=== PATIENT | female | born 1970 | race Caucasian/White ===

== ENCOUNTER → 2017-08-14 13:36 | Outpatient (CLI) | payer BC, MEDICAID, SELFPAY ==
--- NOTE | 2017-08-14 13:42 | XR_ITS ---
EXAM: XR thoracic spine 3V HISTORY: Posttraumatic pain ITS.REASON: TRAUMA,LOW BACK PAIN FINDINGS: Normal alignment. Mild thoracic curvature convex right. Minimal degenerative changes are present in the midthoracic spine. No fracture or dislocation. No lytic or blastic change. There are 2 small metallic densities overlying the mid aspect of the heart IMPRESSION: No acute finding
--- NOTE | 2017-08-14 13:42 | XR_ITS ---
EXAM: XR lumbar spine min 4V HISTORY: ITS.REASON: TRAUMA,LOW BACK PAIN ORDERING PHYSICIAN: Chiquita Mckeon PATIENT AGE: 46 years COMPARISON: FINDINGS: Normal alignment. No fracture or dislocation. No lytic or blastic change. No significant degenerative change. The disc spaces are preserved. IMPRESSION: No acute finding
== END ==
PROVIDERS: PCP Internal Medicine Adolescent Medicine; Visit Provider Nurse Practitioner Family
DX: G89.11 Acute pain due to trauma (principal); M54.5 Low back pain
CPT/HCPCS: 72072; 72110

== ENCOUNTER 2018-01-10 07:49 | Outpatient (RCR) | payer BC, MEDICAID, SELFPAY | END 2018-01-10 07:50 | disposition home or self-care (01) | LOC: PT 07:49 | PROVIDERS: Family Provider Internal Medicine; PCP Nurse Practitioner Family; Visit Provider Orthopaedic Surgery | DX: M25.551 Pain in right hip (principal) | CPT/HCPCS: 97110; 97163 ==

== ENCOUNTER 2019-04-11 08:07 | Outpatient (RCR) | payer BC, SELFPAY | END 2019-04-11 08:10 | disposition home or self-care (01) | LOC: PT 08:07 | PROVIDERS: Visit Provider Orthopaedic Surgery | DX: M25.551 Pain in right hip (principal) | CPT/HCPCS: 97163 ==

== ENCOUNTER 2019-12-25 18:39 | Emergency (ER) | payer BC, SELFPAY ==
[2019-12-25 19:11] VITALS: BP 126/87; PULSE 70; RESP 21; TEMP 36.8; O2SAT 98; BMI 20.5
--- NOTE | 2019-12-25 19:23 | HMH.EDUTC ---
[facility] [place] Clinical Impression: UTI (urinary tract infection) Qualifiers: Urinary tract infection type: site unspecified Hematuria presence: without hematuria Qualified Code(s): N39.0 - Urinary tract infection, site not specified Disposition: Home, Self-Care Condition on Discharge: Good Instructions: Urinary Tract Infection, DI for Urinary Tract Infection (UTI), Nitrofurantoin, Fluconazole Additional Instructions: *Increase fluids. Water not Soda or Tea *Start antibiotic immediately and be sure to take as ordered for the FULL length of time although you should start to see improvement over the next 48 hours *Pyridium as needed Remember this medication will turn your urine [place]. This is normal but it will stain what ever it gets on *You should not use Pyridium for more than 48 hours. If so , follow up with your primary physician to review urine culture and ensure that antibiotic is adequate for infection *Be SURE to follow up anytime for new or worsening symptoms with your family doctor. AND in 48 hours for urine culture results with your family doctor, if you do not have a doctor then you may call back to the [facility] for urine culture results and further treatment. We do recommend that you choose and establish care with a Primary Care Physician. AND follow up with them in 10-14 days to repeat UA to ensure infection is resolved and blood no longer present *Be sure to let your PCP know that we sent urine cultures from the [facility] so they can follow up to ensure that you area the on the correct antibiotic Call your doctor office and make appointment for 48 hours (2 days from today) to follow up and get the results of your urine culture and further treatment Return if needed Straight to ER if any life threatening symptoms Prescriptions: Fluconazole [Diflucan 150mg tab] 150 mg PO ONCE #1 tab Transmission Status: Pending to [facility] # Nitrofurantoin Monohyd/M-Cryst [Macrobid 100 mg Capsule] 100 mg PO BID 10 Days #20 cap Transmission Status: Pending to [facility] # Phenazopyridine HCl [Pyridium 200mg Tablet] 200 pow PO TID #6 tab Transmission Status: Pending to [facility] # Referrals: Chanelle Kay [Primary Care Provider] - As needed Time of Disposition: 19:37 Medical Decision Making - Hakan Inquiry Pt receiving controlled substance: No Hakan was queried for this patient: No Vital Signs: 12/25/19 19:11 12/25/19 19:33 Temperature 98.2 F 98.2 F Temperature Source Oral Pulse Rate 70 Pulse Rate [Left] 70 Respiratory Rate 21 20 Blood Pressure 126/87 Blood Pressure [Right Arm] 126/87 Blood Pressure Mean [Right Arm] 100 Blood Pressure Source [Right Arm] Automatic Cuff Blood Pressure Position [Right Arm] Sitting 02 Sat by Pulse Oximetry 98 Oxygen Delivery Method Room Air - Lab Data Lab results reviewed: Yes: I reviewed the patient's lab results. Lab Results 12/25/19 19:23: Urine Color Yellow, Urine Appearance Clear, Urine pH 6.5, Ur Specific [place] 1.005, Urine Protein Negative, Urine Glucose (UA) Negative, Urine Ketones Negative, Urine Blood Negative, Urine Nitrate Negative, Urine Bilirubin Negative, Urine Urobilinogen 0.2, Ur Leukocyte Esterase Trace [facility] [place] - General Stated complaint: Possible UTI Time Seen by Provider: 12/25/19 19:23 Mode of Arrival: Ambulatory Source of Information: Patient Limitations: No Limitations Description of Symptoms (Recalled from Triage Doc. by RN): Bladdder spasm x 1 week HEENT Symptoms (Recalled from RN notes): No Resp Symptoms (Recalled from RN notes): No Skin Symptoms (Recalled from RN notes): No MS Symptoms (Recalled from RN notes): Yes Functional Status (Recalled from RN notes): WNL - History of Present Illness Provider Complaint: Patient states that she has been having burning with urination and feeling like she is having bladder spasms States that it has been on and off for a week and would come and go
[2019-12-25 19:25] LABS: Apearance,Urine Clear (Clear); Bilirubin,Urine Negative (Negative); Blood, Urine Negative (Negative); Color,Urine Yellow (Yellow); Glucose,Urine (UA) Negative (Negative); Ketones,Urine Negative (Negative); PH,Urine 6.5 (5.0-8.5); Protein,Urine Negative (Negative); Specific Gravity, Urine 1.005 (1.005-1.030); UTC Leukocyte Esterase,Urine Trace (Negative); UTC Nitrate,Urine Negative (Negative); Urobilinogen,Urine 0.2 EU/dl (0.2)
[2019-12-25 19:33] VITALS: BP 126/87; PULSE 70; RESP 20; TEMP 36.8; O2SAT 98
== END 2019-12-25 19:53 | disposition home or self-care (01) ==
PROVIDERS: Emergency Provider Nurse Practitioner; PCP Nurse Practitioner Family
DX: N30.00 Acute cystitis without hematuria (principal); N32.89 Other specified disorders of bladder; Z87.442 Personal history of urinary calculi; G43.709 Chronic migraine without aura, not intractable, without status migrainosus; Z88.1 Allergy status to other antibiotic agents; Z79.899 Other long term (current) drug therapy
CPT/HCPCS: 81003; 87086; 87880; 99201

== ENCOUNTER 2020-03-07 13:06 | Emergency (ER) | payer BC, SELFPAY ==
[2020-03-07 13:45] VITALS: BP 125/84; PULSE 73; RESP 20; TEMP 37; O2SAT 100
--- NOTE | 2020-03-07 14:22 | HMH.EDUTC ---
[facility] [place]ression: Exposure to COVID-19 virus Migraine Qualifiers: Migraine type: other Status migrainosus presence: without status migrainosus Intractability: not intractable Qualified Code(s): G43.809 - Other migraine, not intractable, without status migrainosus Disposition: Home, Self-Care Condition on Discharge: Good Instructions: Preventing the Spread of Coronavirus Discharge Instructions, Migraine -- Adult, DI for Migraine Prescriptions: Ondansetron [Zofran 4mg ODT] 4 mg PO TIDP PRN 3 Days #7 tab PRN Reason: Nausea Prescription Printed Referrals: Chanelle Kay [Primary Care Provider] - Time of Disposition: 14:40 Medical Decision Making - Hakan Inquiry Pt receiving controlled substance: No Vital Signs: 03/07/20 13:45 Temperature 98.6 F Temperature Source Oral Pulse Rate [Left Brachial] 73 Respiratory Rate 20 Blood Pressure [Left Arm] 125/84 Blood Pressure Mean [Left Arm] 97 Blood Pressure Source [Left Arm] Automatic Cuff Blood Pressure Position [Left Arm] Sitting 02 Sat by Pulse Oximetry 100 Oxygen Delivery Method Room Air [facility] [place] - General Chief complaint: [facility] Stated complaint: migraine, fever, ear pain Time Seen by Provider: 03/07/20 14:23 Mode of Arrival: Ambulatory Source of Information: Patient Limitations: No Limitations Description of Symptoms (Recalled from Triage Doc. by RN): PATIENT C/O FEVER, NAUSEA, VOMITING, HEADACHE, BILATERAL EAR PAIN, SINUS PRESSURE/DRAINAGE, AND SORE THROAT SINCE YESTERDAY. EXPOSED TO COVID THROUGH WORK HEENT Symptoms (Recalled from RN notes): Yes Resp Symptoms (Recalled from RN notes): No Skin Symptoms (Recalled from RN notes): No MS Symptoms (Recalled from RN notes): No Functional Status (Recalled from RN notes): WNL - History of Present Illness Provider Complaint: 49 yr old female presents for sore throat, migraine headache, fever, clear nasal congestion, left ear pain, nausea and body aches. pt states she has a history of migraines and this is like her normal headache but is out of meds. was exposed to covid at work - Related Data Home Medications Medication Instructions Recorded Confirmed bupropion HCl 150 mg 24 hr tablet, 150 mg PO QAM 06/18/17 04/29/18 extended release fluoxetine 10 mg capsule 10 mg PO ONCE cap 06/18/17 04/29/18 lidocaine 5 % topical patch 1 patch TOPICAL ONCE 06/18/17 04/29/18 tizanidine 2 mg capsule 2 mg PO TID PRN cap 06/18/17 04/29/18 topiramate 200 mg tablet 200 mg PO ONCE tab 06/18/17 04/29/18 furosemide 20 mg tablet 20 mg PO NEEDED PRN 90 Days #90 11/28/17 04/29/18 hydrocodone 5 mg-acetaminophen 325 PO 30 Days #30 tab 03/06/18 04/29/18 mg tablet ibuprofen 800 mg-famotidine 26.6 PO 30 Days #90 tab 03/06/18 04/29/18 mg tablet Previous Rx's Medication Instructions Recorded albuterol sulfate 90 mcg/actuation 2 puff INHALATION Q6H PRN 7 Days 03/06/18 aerosol inhaler #6.7 g albuterol sulfate 90 mcg/actuation 2 puff INHALATION Q6H PRN 7 Days 04/29/18 aerosol inhaler #6.7 g benzonatate 200 mg capsule 200 mg PO TID PRN 7 Days #21 cap 04/29/18 prednisone 20 mg tablet 20 mg PO BID 7 Days #14 tab 04/29/18 Fluconazole [Diflucan 150mg tab] 150 mg PO ONCE #1 tab 12/25/19 Nitrofurantoin Monohyd/M-Cryst 100 mg PO BID 10 Days #20 cap 12/25/19 [Macrobid 100 mg Capsule] Phenazopyridine HCl [Pyridium 200 pow PO TID #6 tab 12/25/19 200mg Tablet] Ondansetron [Zofran 4mg ODT] 4 mg PO TIDP PRN 3 Days #7 tab 03/07/20 Allergies Allergy/AdvReac Type Severity Reaction Status Date / Time amoxicillin [From Augmentin] Allergy Verified 04/29/18 12:20 clavulanic acid Allergy Verified 04/29/18 12:20 [From Augmentin] doxycycline Allergy Verified 03/07/20 14:02 NSAIDS (Non-Steroidal Allergy Verified 03/07/20 14:02 Anti-Inflamma zolpidem [From Ambien] Allergy Verified 04/29/18 12:20 - Worker's Comp Is this a Worker's Comp case?: No
[2020-03-07 14:24] LABS: UTC Influenza A Antigen Negative (Negative); UTC Influenza B Antigen Negative (Negative)
[2020-03-07 15:03] VITALS: BP 125/84; PULSE 73; RESP 20; TEMP 37; O2SAT 100
--- NOTE | 2020-03-08 09:44 | PC.NURSE ---
patient notified of positive covid results
== END 2020-03-07 15:11 | disposition home or self-care (01) ==
PROVIDERS: Emergency Provider Nurse Practitioner Family; PCP Nurse Practitioner Family
DX: U07.1 COVID-19 (principal); G43.809 Other migraine, not intractable, without status migrainosus; F33.1 Major depressive disorder, recurrent, moderate; Z87.442 Personal history of urinary calculi; Z79.899 Other long term (current) drug therapy; Z88.1 Allergy status to other antibiotic agents; Z88.8 Allergy status to other drugs, medicaments and biological substances
CPT/HCPCS: 87804; 96372; 99202; U0003

== ENCOUNTER 2020-03-14 13:46 | Emergency (ER) | payer BC, SELFPAY ==
[2020-03-14 13:50] VITALS: BP 116/83; PULSE 97; RESP 18; TEMP 36.9; O2SAT 97; BMI 19.9
--- NOTE | 2020-03-14 14:04 | XR_ITS ---
PROCEDURE: XR CHEST PORTABLE CLINICAL HISTORY: lung pain COMPARISON: CR CXR CHEST(2 VIEWS-NOT PORTABLE) from 01/23/2013 CR CXR CHEST(2 VIEWS-NOT PORTABLE) from 01/20/2014 CR CXR1 CHEST-PORTABLE from 02/11/2014 FINDINGS: There is hyperinflation of the lung iverson. There is no definite pneumonic infiltrate and there is no pleural fluid. The cardiac silhouette and vascularity are normal. There is a hypoplastic right 1st rib otherwise the bony thorax appears normal. IMPRESSION: Mild emphysematous change, no acute chest pathology noted Dictated by: Dr. Bassam Jean MD 03/14/2020 15:25 Dr. Bassam Jean MD in [place] 03/14/2020 15:25
[2020-03-14 14:21] VITALS: BP 116/83; PULSE 95; O2SAT 98
--- NOTE | 2020-03-14 14:40 | HMH.EDGENADL ---
ED Disposition Clinical Impression: COVID-19 Disposition: Home, Self-Care Condition on Discharge: Good Additional Instructions: Please return with any new or worsening symptoms. Take Tylenol and ibuprofen for symptom control. Follow-up with your primary care physician. Take Zofran for nausea. Referrals: Chanelle Kay [Primary Care Provider] - - Critical Care Critical Care Time: No Attestation: On 03/14/20, the high probability of a clinically significant, sudden or life threatening deterioration of the following system(s) required my full and direct attention, intervention and personal management. The time I documented below is in addition to time spent performing reported procedures but includes the following listed in this critical care notation. Medical Decision Making - Medical Records Medical records reviewed: Yes: I reviewed the patient's medical records. - Hakan Inquiry Pt receiving controlled substance: No Vital Signs: 03/14/20 13:50 03/14/20 14:21 Temperature 98.4 F Temperature Source Tympanic Pulse Rate [Left Radial] 97 H 95 H Respiratory Rate 18 Blood Pressure [Left Arm] 116/83 116/83 Blood Pressure Mean [Left Arm] 94 94 Blood Pressure Source [Left Arm] Automatic Cuff Automatic Cuff Blood Pressure Position [Left Arm] Sitting Sitting 02 Sat by Pulse Oximetry 97 98 Oxygen Delivery Method Room Air Room Air Orders (Tests/Meds): ED MEDICATIONS Discontinued Medications Generic Name Dose Route Start Last Admin Trade Name Freq PRN Reason Stop Dose Admin Acetaminophen 1,000 mg 03/14/20 14:25 03/14/20 14:47 Acetaminophen 500mg Tab PO 03/14/20 14:26 1,000 mg ONCE ONE Administration Ibuprofen 400 mg 03/14/20 14:27 03/14/20 14:47 Ibuprofen 400 Mg Tablet PO 03/14/20 14:28 400 mg ONCE ONE Administration Ondansetron HCl 4 mg 03/14/20 14:26 03/14/20 14:47 Ondansetron 4mg Odt SL 03/14/20 14:27 4 mg ONCE ONE Administration ORDERS Category Date Time Status Chest XR -- portable [XR chest portable] Stat Exams 03/14/20 14:04 Taken Medical Decision Narrative: Patient is a 49-year-old female who was recently diagnosed with COVID-19 who presents the emergency department today with symptoms of COVID-19. PERC negative. Low heart score. Chest x-ray, Tylenol, ibuprofen, Zofran ordered. Reported allergy of ibuprofen in the chart, however patient states she had a today. X-ray nonactionable. Symptoms most consistent with COVID-19. Patient not tachycardic or hypoxic. Return precautions given. Instructed to fill her prescription for Zofran that she already has. Discharged General Adult HPI - General Chief complaint: PAIN Stated complaint: test postive for COVID.lungs .SOB Time Seen by Provider: 03/14/20 14:00 Mode of Arrival: Ambulatory Limitations: No Limitations Description of Symptoms (Recalled from ER Triage Doc. by RN): Pt c/o lindy lung pain , reports productive cough, states had a fever yesterday. Pt reports has intermittent SOA. Pt states tested positive for covid 19 1 week ago. - History of Present Illness HPI narrative: The patient is a 49-year-old female with a history of recent COVID-19 diagnosis who presents to the emergency department today with posterior pleuritic chest pain. Patient also reports a headache, nausea, and diffuse body pain. Patient states she felt short of breath several days ago, however this is improved. No history of blood clot. Not on oral contraceptives. No cancer history. - Related Data Home Medications Medication Instructions Recorded Confirmed bupropion HCl 150 mg 24 hr tablet, 150 mg PO QAM 06/18/17 03/14/20 extended release fluoxetine 10 mg capsule 10 mg PO ONCE cap 06/18/17 03/14/20 tizanidine 2 mg capsule 2 mg PO TID PRN cap 06/18/17 03/14/20 topiramate 200 mg tablet 200 mg PO ONCE tab 06/18/17 03/14/20 Allergies Allergy/AdvReac Type Severity Reaction Status Date / Time amoxicillin
[2020-03-14 14:53] VITALS: BP 107/81; PULSE 89; O2SAT 97
[2020-03-14 15:07] VITALS: BP 116/83; PULSE 69; RESP 18; TEMP 36.9; O2SAT 96
== END 2020-03-14 15:07 | disposition home or self-care (01) ==
PROVIDERS: Emergency Provider Emergency Medicine; PCP Nurse Practitioner Family
DX: U07.1 COVID-19 (principal); F33.1 Major depressive disorder, recurrent, moderate; Z79.899 Other long term (current) drug therapy; Z88.1 Allergy status to other antibiotic agents
CPT/HCPCS: 71045; 99282

== ENCOUNTER 2020-03-22 14:52 | Emergency (ER) | payer BC, MEDICAID, SELFPAY ==
[2020-03-22 15:02] VITALS: BP 126/80; PULSE 68; RESP 20; TEMP 36.7; O2SAT 98; BMI 24.3
--- NOTE | 2020-03-22 15:12 | HMH.EDUTC ---
[facility] – [place] Disposition Clinical Impression: COVID-19, Pleurisy, Bronchitis Disposition: Home, Self-Care Condition on Discharge: Good Instructions: DI for COVID-19 (Suspected or Confirmed ), Preventing the Spread of Coronavirus Discharge Instructions Additional Instructions: Drink plenty of fluids. Take tylenol for pain or fever. Return if you begin to have difficulty breathing. Follow up with your regular doctor. GO TO THE ER FOR ANY WORSENING SYMPTOMS Prescriptions: Ondansetron [Zofran 4mg ODT] 4 mg PO Q8HP PRN #12 tab.rapdis PRN Reason: Nausea Transmission Status: Received by [facility] # Fluconazole [Diflucan 150mg tab] 150 mg PO ONCE #1 tab Transmission Status: Received by [facility] # Azithromycin [Z-Kam 250mg Tab*] 250 mg PO UD DOSE PK #6 tab Transmission Status: Received by [facility] # Referrals: Chanelle Kay [Primary Care Provider] - Time of Disposition: 15:33 Medical Decision Making - Medical Records Medical records reviewed: No: I reviewed the patient's medical records. - Hakan Inquiry Pt receiving controlled substance: No Vital Signs: 03/22/20 15:02 03/22/20 15:23 03/22/20 15:41 Temperature 98.0 F 98.0 F Temperature Source Oral Oral Pulse Rate 77 Pulse Rate [Radial] 68 77 Respiratory Rate 20 18 18 Blood Pressure 125/67 Blood Pressure [Right Arm] 126/80 125/67 Blood Pressure Mean [Right Arm] 95 86 Blood Pressure Source Automatic Cuff Blood Pressure Source [Right Arm] Automatic Cuff Automatic Cuff Blood Pressure Position Sitting Blood Pressure Position [Right Arm] Sitting Sitting 02 Sat by Pulse Oximetry 98 97 Oxygen Delivery Method Room Air Room Air Room Air Orders (Tests/Meds): ORDERS Category Date Time Status Covid-19 Nasal PCR Sendout P&[facility] Routine Lab 03/22/20 15:00 Received [facility] – [place] HPI - General Stated complaint: Covid +, soa, pneumonia Time Seen by Provider: 03/22/20 15:14 Mode of Arrival: Ambulatory Source of Information: Patient Limitations: No Limitations Description of Symptoms (Recalled from Triage Doc. by RN): States she was covid positive more than 14 days ago. I weeks ago she was having sob and was seen in the emergency room and diagnosed with pleurisy and pneumonia. States she spoke with her pcp who put her on a steroid. She is here today for another covid test for work and because she has been having nausea, vomiting, and generalized not feeling well. HEENT Symptoms (Recalled from RN notes): Yes Resp Symptoms (Recalled from RN notes): No Skin Symptoms (Recalled from RN notes): No MS Symptoms (Recalled from RN notes): No Functional Status (Recalled from RN notes): wnl - History of Present Illness Provider Complaint: She states that she was covid positive 2 weeks ago. Since then she has continued to feel bad. At this time she has been running a fever on and off since yesterday. She continues to have a cough and fatigue. - Related Data Home Medications Medication Instructions Recorded Confirmed bupropion HCl 150 mg 24 hr tablet, 150 mg PO QAM 06/18/17 03/14/20 extended release fluoxetine 10 mg capsule 10 mg PO ONCE cap 06/18/17 03/14/20 tizanidine 2 mg capsule 2 mg PO TID PRN cap 06/18/17 03/14/20 topiramate 200 mg tablet 200 mg PO ONCE tab 06/18/17 03/14/20 Previous Rx's Medication Instructions Recorded Azithromycin [Z-Kam 250mg Tab*] 250 mg PO UD DOSE PK #6 tab 03/22/20 Fluconazole [Diflucan 150mg tab] 150 mg PO ONCE #1 tab 03/22/20 Ondansetron [Zofran 4mg ODT] 4 mg PO Q8HP PRN #12 tab.rapdis 03/22/20 Allergies Allergy/AdvReac Type Severity Reaction Status Date / Time amoxicillin [From Augmentin] Allergy Verified 04/29/18 12:20 clavulanic acid Allergy Verified 04/29/18 12:20 [From Augmentin] doxycycline Allergy Verified 03/07/20 14:02 NSAIDS (Non-Steroidal Allergy Verified 03/07/20 14:02 Anti-Inflamma zolpidem [From Ambien] Bart
[2020-03-22 15:23] VITALS: BP 125/67; PULSE 77; RESP 18; O2SAT 97
[2020-03-22 15:41] VITALS: BP 125/67; PULSE 77; RESP 18; TEMP 36.7; O2SAT 97
[2020-03-24 12:41] LABS: Covid-19 Nasal PCR Sendout P&C NEGATIVE
== END 2020-03-22 15:42 | disposition home or self-care (01) ==
LOC: ER 14:55 → UTC 14:55
PROVIDERS: Emergency Provider Nurse Practitioner Family; PCP Nurse Practitioner Family
DX: R09.1 Pleurisy (principal); Z86.19 Personal history of other infectious and parasitic diseases; J20.9 Acute bronchitis, unspecified; G43.709 Chronic migraine without aura, not intractable, without status migrainosus; Z79.899 Other long term (current) drug therapy
CPT/HCPCS: 99202; U0004

== ENCOUNTER 2020-06-07 18:34 | Emergency (ER) | payer BC, MEDICAID, SELFPAY ==
[2020-06-07 18:40] VITALS: BP 126/88; PULSE 76; RESP 19; TEMP 37; O2SAT 99; BMI 20.3
--- NOTE | 2020-06-07 19:23 | HMH.EDUTC ---
[facility] [place] Clinical Impression: Viral syndrome Disposition: Home, Self-Care Condition on Discharge: Good Instructions: Sore Throat, DI for Cough -- Adult, DI for COVID-19 (Suspected or Confirmed ) Additional Instructions: *Monitor Temp, Over the counter Motrin or Tylenol as directed/as needed Tylenol every 4 hours and Motrin every 6 hours (as long as your family doctor has told you that you can take it) for fever or pain. and straight to ER if unable to lower temp less than 101.0 after medication given *Warm salt water gargles may help to soothe the throat *Throat Lozenges *Warm fluids like tea with honey may help to soothe the throat *Sleep elevated *Humidifier/Vaporizer Your throat swab was sent for culture. Those results are typically sent to your primary care. Be sure to follow up in 2-3 days with your family doctor/primary care physician if no improvement so they can review those result and treat if necessary. If you don?t have a primary care doctor, I recommend you get one but in the mean time, you will have to return to a walk in clinic Follow up IMMEDIATELY for new or worsening symptoms or no Noticeable improvement over the next 48-72 hours. 911 for difficulty breathing or swallowing Make sure to go get your medication for UTI and start it You were tested for today for COVID19 your test result should be back in the next 24-48 hours, you may call to the [facility] to see if your test results are back in the next 48 hours [phone] [facility] hours are 9am-9pm You was given a handout with instructions for Self Quarantine and Self isolation for while you wait on test results and what to do if they are positive If you are positive the Health Dept will be contacting you also Referrals: Chanelle Kay [Primary Care Provider] - As needed Time of Disposition: 19:43 Medical Decision Making - Hakan Inquiry Pt receiving controlled substance: No Hakan was queried for this patient: No Vital Signs: 06/07/20 18:40 Temperature 98.6 F Temperature Source Oral Pulse Rate [Right Brachial] 76 Respiratory Rate 19 Blood Pressure [Right Arm] 126/88 Blood Pressure Mean [Right Arm] 100 Blood Pressure Source [Right Arm] Automatic Cuff Blood Pressure Position [Right Arm] Sitting 02 Sat by Pulse Oximetry 99 Oxygen Delivery Method Room Air - Lab Data Lab results reviewed: Yes: I reviewed the patient's lab results. Orders (Tests/Meds): ORDERS Category Date Time Status Covid-19 Nasal PCR ([facility]) Routine Lab 06/07/20 18:50 Received [facility] [place] HPI - General Stated complaint: sore throat PINED[place],had covid in mar 22 Time Seen by Provider: 06/07/20 19:23 Mode of Arrival: Ambulatory Source of Information: Patient Limitations: No Limitations Description of Symptoms (Recalled from Triage Doc. 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 and unsure if she may have been exposed again or not and wanted to get checked - Related Data Home Medications Medication Instructions Recorded Confirmed bupropion HCl 150 mg 24 hr tablet, 150 mg PO QAM 06/18/17 03/14/20 extended release fluoxetine 10 mg capsule 10 mg PO ONCE cap 06/18/17 03/14/20 tizanidine 2 mg capsule 2 mg PO TID PRN cap 06/18/17 03/14/20 topiramate 200 mg tablet 200 mg PO ONCE tab 06/18/17 03/14/20 Previous Rx's Medication Instructions Recorded Azithromycin [Z-Kam 250mg Tab*] 250 mg PO UD DOSE PK #6 tab 03/22/20 Fluconazole [Diflucan 150mg tab] 150 mg PO ONCE #1 tab 03/22/20
[2020-06-07 19:43] LABS: UTC Influenza A Antigen Negative (Negative); UTC Influenza B Antigen Negative (Negative); UTC Strep Screen (Rapid) Negative (Negative)
[2020-06-07 19:56] VITALS: BP 126/88; PULSE 76; RESP 19; TEMP 37; O2SAT 99
== END 2020-06-07 19:58 | disposition home or self-care (01) ==
PROVIDERS: Emergency Provider Nurse Practitioner; PCP Nurse Practitioner Family
DX: Z20.822 Contact with and (suspected) exposure to COVID-19 (principal); B34.9 Viral infection, unspecified; Z88.1 Allergy status to other antibiotic agents; Z88.5 Allergy status to narcotic agent
CPT/HCPCS: 87804; 87880; 99202; G0463; U0003

== ENCOUNTER 2021-02-15 13:57 | Emergency (ER) | payer BC, MEDICAID, SELFPAY ==
[2021-02-15 14:24] VITALS: BP 148/83; PULSE 70; RESP 18; TEMP 36.8; O2SAT 99; BMI 20.9
--- NOTE | 2021-02-15 14:32 | HMH.EDUTC ---
[facility] [place] Impression: Migraine Qualifiers: Migraine type: unspecified Status migrainosus presence: without status migrainosus Intractability: not intractable Qualified Code(s): G43.909 - Migraine, unspecified, not intractable, without status migrainosus Disposition: Home, Self-Care Condition on Discharge: Good Instructions: Migraine -- Adult, DI for Migraine, Promethazine Additional Instructions: Go home lay down and try to sleep off migraine *Monitor Temp, Over the counter Motrin or Tylenol as directed/as needed Tylenol every 4 hours and Motrin every 6 hours (as long as your family doctor has told you that you can take it) for fever or pain. and straight to ER if unable to lower temp less than 101.0 after medication given *Warm salt water gargles may help to soothe the throat *Throat Lozenges *Warm fluids like tea with honey may help to soothe the throat *Sleep elevated *Humidifier/Vaporizer Follow up IMMEDIATELY for new or worsening symptoms or no Noticeable improvement over the next 48-72 hours. 911 for difficulty breathing or swallowing You were tested for today for COVID19 your test result should be back in the next 24-48 hours, you may check your results on the [facility] my health portal if you have trouble logging on you may call You was given a handout with instructions for Self Quarantine and Self isolation for while you wait on test results and what to do if they are positive If you are positive the Health Dept will be contacting you also Make sure to take your Vitamins Vit. C Vit D and Zinc if you can take them Prescriptions: Promethazine HCl [Phenergan 25mg tab] 25 mg PO Q6H PRN #6 tab PRN Reason: Nausea And Vomiting Transmission Status: Received by [facility] Referrals: Chanelle Kay [Primary Care Provider] - As needed Forms: Work/School Release Time of Disposition: 15:15 Medical Decision Making - Hakan Inquiry Pt receiving controlled substance: No Hakan was queried for this patient: No Vital Signs: 02/15/21 14:24 02/15/21 15:22 Temperature 98.3 F 98.3 F Temperature Source Oral Pulse Rate 70 Pulse Rate [Left] 70 Respiratory Rate 18 18 Blood Pressure 148/83 H Blood Pressure [Right Arm] 148/83 H Blood Pressure Mean [Right Arm] 104 02 Sat by Pulse Oximetry 99 Orders (Tests/Meds): ED MEDICATIONS Discontinued Medications Generic Name Dose Route Start Last Admin Trade Name Sanjuana PRN Reason Stop Dose Admin Ketorolac Tromethamine 60 mg 02/15/21 14:41 02/15/21 15:05 Ketorolac 60mg/2ml Vial IM 02/15/21 14:42 60 mg ONCE ONE Administration Ondansetron HCl 4 mg 02/15/21 14:41 Ondansetron 4mg Odt SL 02/15/21 14:42 ONCE ONE ORDERS Category Date Time Status Covid-19 Nasal PCR ([facility]) Routine Lab 02/15/21 14:40 Received Medical Decision Narrative: Patient states that she has taken Toradol in the past without complications or reactions 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 by RN): pt c/o a PINEDA, n/v, and low grade fever. this has been ongoing since last week. HEENT Symptoms (Recalled from RN notes): Yes (PINEDA) Resp Symptoms (Recalled from RN notes): No Skin Symptoms (Recalled from RN notes): No MS Symptoms (Recalled from RN notes): No Functional Status (Recalled from RN notes): na - History of Present Illness Provider Complaint: Patient states that she has a history of Migraine headaches and she started with one last week States that she seen her neurologist an
[2021-02-15 15:22] VITALS: BP 148/83; PULSE 70; RESP 18; TEMP 36.8
== END 2021-02-15 15:26 | disposition home or self-care (01) ==
PROVIDERS: Emergency Provider Nurse Practitioner; PCP Nurse Practitioner Family
DX: G43.909 Migraine, unspecified, not intractable, without status migrainosus (principal)
CPT/HCPCS: 96372; 99202; C9803; G0463; U0003; U0005

== ENCOUNTER 2021-04-16 14:07 | Emergency (ER) | payer BC, MEDICAID, SELFPAY ==
--- NOTE | 2021-04-16 15:28 | XR_ITS ---
FINAL REPORT CLINICAL HISTORY: cough COMPARISON: March 14, 2020 FINDINGS: Two views of the chest were obtained. The heart size and pulmonary vascularity are within normal limits. The mediastinum is normal. The lungs are hyperinflated consistent with COPD. There is no pneumothorax. The bony thorax is intact. IMPRESSION: Hyperinflation consistent with COPD. Reviewed, Interpreted and Dictated by Vitaliy Reyes III, MD Transcribed by Sabina Barnett Authenticated by Vitaliy Reyes III, MD on 04/16/2021 04:07:53 PM [facility]
[2021-04-16 15:30] VITALS: BP 126/72; PULSE 71; RESP 20; TEMP 36.6; O2SAT 100; BMI 21.4
--- NOTE | 2021-04-16 15:36 | HMH.EDUTC ---
[facility] [place] Disposition Clinical Impression: COVID-19, Viral syndrome Disposition: Home, Self-Care Condition on Discharge: Good Instructions: DI for COVID-19 (Suspected or Confirmed ), Preventing the Spread of Coronavirus Discharge Instructions Additional Instructions: Drink plenty of fluids. Take tylenol or ibuprofen for pain or fever. Take the medications as directed. Follow up with your regular doctor. GO TO THE ER FOR ANY WORSENING SYMPTOMS The cough medication (promethazine dm) will make you drowsy, so don't drive or operate heavy machinery after taking it. Prescriptions: Ondansetron [Zofran 4mg ODT] 4 mg PO Q8HP PRN #20 tab PRN Reason: Nausea Transmission Status: Pending to [facility] methylPREDNISolone [Medrol] 4 mg PO DIRECTED 6 Days #21 packet Transmission Status: Pending to [facility] Referrals: Chanelle Kay [Primary Care Provider] - Forms: Work/School Release Time of Disposition: 17:10 Medical Decision Making - Medical Records Medical records reviewed: No: I reviewed the patient's medical records. - Hakan Inquiry Pt receiving controlled substance: No Vital Signs: 04/16/21 15:30 Temperature 97.9 F Temperature Source Oral Pulse Rate [Left] 71 Respiratory Rate 20 Blood Pressure [Right Arm] 126/72 Blood Pressure Mean [Right Arm] 90 02 Sat by Pulse Oximetry 100 - Lab Data Lab Results 04/16/21 15:58: Strep Scn Rapid Clinic Negative 04/16/21 15:58: Influenza Type A Ag Negative, Influenza Type B Ag Negative 04/16/21 16:09: WBC 4.4 L, RBC 4.48, Hgb 13.8, Hct 43.5, MCV 97.0, MCH 30.7, MCHC 31.7 L, RDW 13.1, Plt Count 335, MPV 7.7, Neut % (Auto) 55.9, Lymph % (Auto) 36.6, [place] % (Auto) 5.0, Eos % (Auto) 1.3, Baso % (Auto) 1.3, Neut # (Auto) 2.5, Lymph # (Auto) 1.6, [place] # (Auto) 0.2, Eos # (Auto) 0.1, Baso # (Auto) 0.1 04/16/21 16:09: Sodium 140, Potassium 4.4, Chloride 104, Carbon Dioxide 31 H, Anion Gap 9.4, BUN 13, Creatinine 0.80, Estimated Creat Clear 88, Estimated GFR 75, Est GFR ( Amer) 91, Glucose 91, Calcium 9.2 04/16/21 16:09: Monoscreen Negative Result diagrams: 04/16/21 16:09 04/16/21 16:09 Orders (Tests/Meds): ORDERS Category Date Time Status Strep Screen Confirmation Routine Micro 04/16/21 15:58 Received [facility] [place] HPI - General Stated complaint: covid positive, symptoms Time Seen by Provider: 04/16/21 15:36 Mode of Arrival: Ambulatory Source of Information: Patient Limitations: No Limitations Description of Symptoms (Recalled from Triage Doc. by RN): pt c/o congestion, SOA, cough, fatigue and PINEDA. pt was covid + on 04/04/21. HEENT Symptoms (Recalled from RN notes): Yes (congestion and PINEDA) Resp Symptoms (Recalled from RN notes): Yes (cough and SOA) Skin Symptoms (Recalled from RN notes): No MS Symptoms (Recalled from RN notes): No Functional Status (Recalled from RN notes): wnl - History of Present Illness Provider Complaint: She states that she has felt bad for the past 2 weeks. She tested positive for covid-19 on 04/05. She denies significant shortness of breath, but she states she feels very fatigued. If she walks across the room she gets exhausted. She had covid-19 last year and she has been fully vaccinated against it too. - Related Data Home Medications Medication Instructions Recorded Confirmed bupropion HCl 150 mg 24 hr tablet, 150 mg PO QAM 06/18/17 03/14/20 extended release fluoxetine 10 mg capsule 10 mg PO ONCE cap 06/18/17 03/14/20 tizanidine 2 mg capsule 2 mg PO TID PRN cap 06/18/17 03/14/20 topiramate 200 mg tablet 200 mg PO ONCE tab 06/18/17 03/14/20 Previous Rx's Medication Instructions Recorded Azithromycin [Z-Kam 250mg Tab*] 250 mg PO UD DOSE PK #6 tab 03/22/20 Fluconazole [Diflucan 150mg tab] 150 mg PO ONCE #1 tab 03/22/20 Ondansetron [Zofran 4mg ODT] 4 mg PO Q8HP PRN #12 tab.eshadis 03/22/20 Promethazine HCl [Phenergan 25mg 25 mg PO Q6H PRN #6 tab
[2021-04-16 16:07] LABS: UTC Influenza A Antigen Negative (Negative)
[2021-04-16 16:08] LABS: UTC Influenza B Antigen Negative (Negative); UTC Strep Screen (Rapid) Negative (Negative)
[2021-04-16 16:53] LABS: Basophils # 0.1 K/mm3 (0-0.2); Basophils % 1.3 % (0.1-2.0); Eosinophils # 0.1 K/mm3 (0.0-0.4); Eosinophils % 1.3 % (0.1-12.0); Hematocrit 43.5 % (37.0-47.0); Hemoglobin 13.8 g/dL (12.2-16.2); Lymphocytes # 1.6 K/mm3 (0.7-4.5); Lymphocytes % 36.6 % (10-50); Mean Corpuscular HGB Conc 31.7 g/dL (31.8-35.4); Mean Corpuscular Hemoglobin 30.7 pg (27.0-31.2); Mean Platelet Volume 7.7 fl (7.4-10.4); Monocytes # 0.2 K/mm3 (0.1-1.0); Neutrophils # 2.5 K/mm3 (1.8-7.8); Neutrophils % 55.9 % (37.0-80.0); Platelet Count 335 K/mm3 (142-424); Red Blood Count 4.48 M/mm3 (4.20-5.40); Red Cell Distribution Width 13.1 % (11.5-17.5); White Blood Count 4.4 K/mm3 (4.8-10.8)
[2021-04-16 16:57] LABS: Chloride 104 mmol/L (98-107)
[2021-04-16 16:58] LABS: Potassium 4.4 mmoL/L (3.5-5.1); Sodium 140 mmol/L (136-145)
[2021-04-16 17:00] LABS: Blood Urea Nitrogen 13 mg/dl (7-17); Creatinine Clearance Estimated 88 mL/min (50-200); Estimated Glomerular Filt Rate 75 ml/min (>60); GFR (African American) 91 ML/MIN (>60)
[2021-04-16 17:01] LABS: Anion Gap 9.4 mEq/L (5-15); Calcium 9.2 mg/dl (8.4-10.2); Carbon Dioxide 31 mmol/L (22.0-30.0); Glucose 91 mg/dl (74-100)
[2021-04-16 17:02] LABS: Monoscreen (Rapid) Negative (Negative)
[2021-04-16 17:29] VITALS: BP 126/72; PULSE 71; RESP 20; TEMP 36.6
== END 2021-04-16 17:31 | disposition home or self-care (01) ==
PROVIDERS: Emergency Provider Nurse Practitioner Family; PCP Nurse Practitioner Family
DX: U07.1 COVID-19 (principal)
CPT/HCPCS: 71046; 80048; 85025; 86318; 87804; 87880; 96365; 96375; 99202; G0463

== ENCOUNTER 2021-04-26 11:47 | Emergency (ER) | payer BC, MEDICAID, SELFPAY ==
[2021-04-26 15:19] VITALS: BP 105/67; PULSE 62; RESP 20; TEMP 36.6; O2SAT 97; BMI 21.5
--- NOTE | 2021-04-26 15:21 | XR_ITS ---
FINAL REPORT CLINICAL HISTORY: weakness FINDINGS: Cardiac silhouette and mediastinum appear unremarkable. Lungs are clear. Incidental note is made of an Amplatzer device in projection of the mediastinum. IMPRESSION: 1. No acute abnormality. Authenticated by Chin Nelson MD on 04/26/2021 04:30:48 PM [facility]
--- NOTE | 2021-04-26 15:31 | HMH.EDUTC ---
[facility] [place] Clinical Impression: Viral syndrome Fatigue Qualifiers: Fatigue type: unspecified Qualified Code(s): R53.83 - Other fatigue Disposition: Home, Self-Care Condition on Discharge: Good Instructions: DI for Viral Syndrome, DI for COVID-19 (Suspected or Confirmed ) Additional Instructions: Drink plenty of fluids. Take tylenol or ibuprofen for pain or fever. Take the medications as directed. Follow up with your regular doctor. GO TO THE ER FOR ANY WORSENING SYMPTOMS Prescriptions: Ondansetron [Zofran 4mg ODT] 4 mg PO Q8HP PRN #20 tab PRN Reason: Nausea Transmission Status: Received by [facility] Referrals: Chanelle Kay [Primary Care Provider] - Forms: Work/School Release Time of Disposition: 17:31 Medical Decision Making - Medical Records Medical records reviewed: No: I reviewed the patient's medical records. - Hakan Inquiry Pt receiving controlled substance: No Vital Signs: 04/26/21 15:19 04/26/21 17:49 Temperature 98 F 98 F Temperature Source Oral Pulse Rate 62 Pulse Rate [Left] 62 Respiratory Rate 20 20 Blood Pressure 105/67 L Blood Pressure [Right Arm] 105/67 L Blood Pressure Mean [Right Arm] 79 02 Sat by Pulse Oximetry 97 - Lab Data Lab results reviewed: Yes: I reviewed the patient's lab results. Lab Results 04/26/21 16:15: Group A Strep Rapid Negative 04/26/21 16:15: Urine Color Straw, Urine Appearance Turbid, Urine pH 6.5, Ur Specific [place] 1.020, Urine Protein Negative, Urine Glucose (UA) Negative, Urine Ketones Negative, Urine Blood Negative, Urine Nitrate Negative, Urine Bilirubin Negative, Urine Urobilinogen 0.2, Ur Leukocyte Esterase Negative 04/26/21 16:42: WBC 4.5 L, RBC 4.27, Hgb 13.0, Hct 41.1, MCV 96.1, MCH 30.5, MCHC 31.8, RDW 12.9, Plt Count 234, MPV 8.0, Neut % (Auto) 50.2, Lymph % (Auto) 41.2, [place] % (Auto) 5.4, Eos % (Auto) 1.2, Baso % (Auto) 2.0, Neut # (Auto) 2.3, Lymph # (Auto) 1.8, [place] # (Auto) 0.2, Eos # (Auto) 0.1, Baso # (Auto) 0.1 04/26/21 16:42: Sodium 137, Potassium 3.9, Chloride 100, Carbon Dioxide 31 H, Anion Gap 9.9, BUN 13, Creatinine 0.70, Estimated Creat Clear 101, Estimated GFR 88, Est GFR ( Amer) 106, Glucose 89, Calcium 9.3, Total Bilirubin 0.4, AST 29, ALT 15, Alkaline Phosphatase 69, Total Protein 7.1, Albumin 4.5, Globulin 2.6, Albumin/Globulin Ratio 1.7, Procalcitonin < 0.030 04/26/21 17:39: Chlamy pneumoniae PCR Not detected, Adenovirus (PCR) Not detected, B. pertussis DNA (PCR) Not detected, Coronavirus OC43 (PCR) Not detected, Coronavirus HKU1 (PCR) Not detected, Coronavirus 229E (PCR) Not detected, SARS-CoV-2 (PCR) Not detected, Coronavirus NL63 (PCR) Not detected, Human Metapneumovir PCR Not detected, Influenza A (H1) PCR Not detected, Influ A (H1N1/09) PCR Not detected, Influenza A (H3) PCR Not detected, Influenza Type A (PCR) Not detected, Influenza Type B (PCR) Not detected, M. pneumoniae (PCR) Not detected, Parainfluenza 1 (PCR) Not detected, Parainfluenza 2 (PCR) Not detected, Parainfluenza 3 (PCR) Not detected, Parainfluenza 4 (PCR) Not detected, RSV (PCR) Not detected, Entero/Rhino (PCR) Not detected Result diagrams: 04/26/21 16:42 04/26/21 16:42 Orders (Tests/Meds): ED MEDICATIONS Discontinued Medications Generic Name Dose Route Start Last Admin Trade Name Freq PRN Reason Stop Dose Admin Sodium Chloride 1,000 mls @ 999 mls/hr 04/26/21 17:15 04/26/21 17:08 Sod Chlor 0.9% 1000ml Bag IV 04/26/21 18:15 999 mls/hr .Q1H1M ALEISHA Administration Ketorolac Tromethamine 30 mg 04/26/21 16:42 04/26/21 17:07 Ketorolac 30mg/Ml Vial IV 04/26/21 16:43 30 mg ONCE ONE Administration Ondansetron HCl 4 mg 04/26/21 16:42 04/26/21 17:07 Ondansetron 4mg/2ml Vial IV 04/26/21 16:43 4 mg ONCE ONE Administration ORDERS Category Date Time Status Strep Screen Confirmation Stat Micro 04/26/21 16:15 Received - Radiology Data #1 Image(
[2021-04-26 16:47] LABS: Strep Scrn Group A (Rapid) Negative (Negative)
[2021-04-26 16:58] LABS: Basophils # 0.1 K/mm3 (0-0.2); Eosinophils # 0.1 K/mm3 (0.0-0.4); Eosinophils % 1.2 % (0.1-12.0); Hematocrit 41.1 % (37.0-47.0); Lymphocytes # 1.8 K/mm3 (0.7-4.5); Lymphocytes % 41.2 % (10-50); Mean Corpuscular HGB Conc 31.8 g/dL (31.8-35.4); Mean Corpuscular Hemoglobin 30.5 pg (27.0-31.2); Mean Corpuscular Volume 96.1 fl (81-99); Monocytes # 0.2 K/mm3 (0.1-1.0); Monocytes % 5.4 % (1.7-9.3); Neutrophils # 2.3 K/mm3 (1.8-7.8); Neutrophils % 50.2 % (37.0-80.0); Platelet Count 234 K/mm3 (142-424); Red Blood Count 4.27 M/mm3 (4.20-5.40); Red Cell Distribution Width 12.9 % (11.5-17.5); White Blood Count 4.5 K/mm3 (4.8-10.8)
[2021-04-26 17:09] LABS: Alanine Aminotransferase 15 U/L (12-78); Albumin Level 4.5 g/dl (3.5-5.0); Albumin/Globulin Ratio 1.7 (1.1-1.8); Alkaline Phosphatase 69 U/L (38-126); Anion Gap 9.9 mEq/L (5-15); Aspartate Amino Transferase 29 U/L (14-36); Bilirubin,Total 0.4 mg/dl (0.2-1.3); Blood Urea Nitrogen 13 mg/dl (7-17); Calcium 9.3 mg/dl (8.4-10.2); Carbon Dioxide 31 mmol/L (22.0-30.0); Chloride 100 mmol/L (98-107); Creatinine Clearance Estimated 101 mL/min (50-200); Estimated Glomerular Filt Rate 88 ml/min (>60); GFR (African American) 106 ML/MIN (>60); Globulin 2.6 g/dL (1.3-3.2); Glucose 89 mg/dl (74-100); Potassium 3.9 mmoL/L (3.5-5.1); Sodium 137 mmol/L (136-145); Total Protein,Serum 7.1 g/dl (6.3-8.2)
[2021-04-26 17:33] LABS: Procalcitonin < 0.030 ng/mL (0.0-2.0)
[2021-04-26 17:49] VITALS: BP 105/67; PULSE 62; RESP 20; TEMP 36.6
[2021-04-26 17:54] LABS: Apearance,Urine Turbid (Clear); Bilirubin,Urine Negative (Negative); Blood, Urine Negative (Negative); Color,Urine Straw (Yellow); Glucose,Urine (UA) Negative (Negative); Ketones,Urine Negative (Negative); PH,Urine 6.5 (5.0-8.5); Protein,Urine Negative (Negative); UTC Leukocyte Esterase,Urine Negative (Negative); UTC Nitrate,Urine Negative (Negative); Urobilinogen,Urine 0.2 EU/dl (0.2)
[2021-04-26 18:09] LABS: Adenovirus,PCR Not Detected (NotDetected); Coronavirus 229E Not Detected (NotDetected); Coronavirus NL63 Not Detected (NotDetected); Coronavirus OC43 Not Detected (NotDetected); Coronovirus HKU1,PCR Not Detected (NotDetected); Human Metapneumovirus Not Detected (NotDetected)
[2021-04-26 18:10] LABS: Bordetella Pertussis Not Detected (NotDetected); Chlamydophila Pneumoniae, PCR Not Detected (NotDetected); Coronavirus 19, PCR Not Detected (NotDetected); Influenza A, PCR Not Detected (NotDetected); Influenza AH1, 2009 Not Detected (NotDetected); Influenza AH1, PCR Not Detected (NotDetected); Influenza AH3,PCR Not Detected (NotDetected); Influenza B, PCR Not Detected (NotDetected); Mycoplasma Pneumoniae, PCR Not Detected (NotDetected); Parainfluenza 1, PCR Not Detected (NotDetected); Parainfluenza 2, PCR Not Detected (NotDetected); Parainfluenza 3, PCR Not Detected (NotDetected); Parainfluenza 4, PCR Not Detected (NotDetected); Respiratory Syncytial Virus Not Detected (NotDetected); Rhinovirus/Enterovirus Not Detected (NotDetected)
== END 2021-04-26 17:57 | disposition home or self-care (01) ==
PROVIDERS: Emergency Provider Nurse Practitioner Family; PCP Nurse Practitioner Family
DX: B34.9 Viral infection, unspecified (principal); Z20.822 Contact with and (suspected) exposure to COVID-19; J02.9 Acute pharyngitis, unspecified; F33.1 Major depressive disorder, recurrent, moderate; G43.709 Chronic migraine without aura, not intractable, without status migrainosus
CPT/HCPCS: 71046; 80053; 81003; 84145; 85025; 87430; 87581; 87632; 87798; 99203; C9803; G0463; J2405; U0003; U0005

== ENCOUNTER 2021-07-12 11:00 | Outpatient (RCR) | payer BC, MEDICAID, SELFPAY | END 2021-07-12 11:05 | disposition home or self-care (01) | LOC: OT 11:00 | PROVIDERS: PCP Nurse Practitioner Family; Visit Provider Orthopaedic Surgery Sports Medicine | DX: M25.512 Pain in left shoulder (principal) | CPT/HCPCS: 97010; 97014; 97110; 97140; 97164; 97166; G0283 ==

== ENCOUNTER 2022-01-14 08:03 | Emergency (ER) | payer BC, MEDICAID, SELFPAY ==
--- NOTE | 2022-01-14 08:38 | EXP.UTC ---
Discharge Plan Disposition Patient Disposition: Home, Self-Care Condition: Good Prescriptions Prescriptions: New cefdinir 300 mg capsule 300 mg PO BID 10 Days Qty: 20 0RF phenazopyridine [Pyridium] 200 mg tablet 200 mg PO Q8H 2 Days Qty: 6 0RF No Action topiramate [Topamax] 200 mg tablet 200 mg PO ONCE bupropion HCl [Wellbutrin XL] 150 mg tablet extended release 24 hr 150 mg PO QAM fluoxetine [Prozac] 10 mg capsule 10 mg PO ONCE tizanidine [Zanaflex] 2 mg capsule 2 mg PO TID PRN (Reason: Muscle Pain) azithromycin 250 MG tablet 250 mg PO UD DOSE PK Qty: 6 0RF Rx Instructions: Take two (2) tablets today, then one (1) tablet days #2 thru #5 fluconazole 150 MG tablet 150 mg PO ONCE Qty: 1 2RF ondansetron 4 MG tablet,disintegrating 4 mg PO Q8HP PRN (Reason: Nausea) Qty: 12 0RF promethazine 25 MG tablet 25 mg PO Q6H PRN (Reason: Nausea And Vomiting) Qty: 6 0RF ondansetron 4 MG tablet,disintegrating 4 mg PO Q8HP PRN (Reason: Nausea) Qty: 20 0RF methylprednisolone 4 MG tablets,dose pack 4 mg PO DIRECTED 6 Days Qty: 21 0RF ondansetron 4 MG tablet,disintegrating 4 mg PO Q8HP PRN (Reason: Nausea) Qty: 20 0RF Referrals Follow up/Referrals: Xiomy Aviles MD [Primary Care Provider] - See instructions Activity Restrictions/Add. Instructions Additional Instructions/Restrictions: *Increase fluids. Water not Soda or Tea *Start antibiotic immediately and be sure to take as ordered for the FULL length of time although you should start to see improvement over the next 48 hours *Pyridium as needed Remember this medication will turn your urine . This is normal but it will stain what ever it gets on *You should not use Pyridium for more than 48 hours. If so , follow up with your primary physician to review urine culture and ensure that antibiotic is adequate for infection *Be SURE to follow up anytime for new or worsening symptoms with your family doctor. AND in 48 hours for urine culture results with your family doctor, if you do not have a doctor then you may call back to the [facility] for urine culture results and further treatment. We do recommend that you choose and establish care with a Primary Care Physician. ?AND follow up with them ?in 10-14 days to repeat UA to ensure infection is resolved and blood no longer present *Be sure to let your PCP know that we sent urine cultures from the [facility] so they can follow up to ensure that you area the on the correct antibiotic Call your doctor office and make appointment for 48 hours (2 days from today) ?to follow up and get the results of your urine culture and further treatment Clinical Impressions Clinical Impression: UTI (urinary tract infection) Instructions Patient Instructions: DI for Urinary Tract Infection (UTI) Discharge ED Provider: Pinky Thacker [facility] [place] HPI General Stated complaint: Possible UTI Time Seen by Provider: 01/14/22 08:39 History of Present Illness Provider Complaint: Patient states that she started last night having achy like pain in her lower back however she is currently being treated and had labrium repair States that then she started having burning with urination and feeling of pressure and urgency and frequency States that she dug and found an azo and it took it and did help some but she feels like she is urinating razor blades Related Data Home Medications Medication Instructions Recorded Confirmed bupropion HCl 150 mg 24 hr tablet, 150 mg PO QAM MOOD 06/18/17 01/14/22 extended release (Wellbutrin XL) fluoxetine 10 mg capsule (Prozac) 10 mg PO ONCE Anxiety 06/18/17 01/14/22 tizanidine 2 mg capsule (Zanaflex) 2 mg PO TID PRN Muscle Pain 06/18/17 01/14/22 topiramate 200 mg tablet (Topamax) 200 mg PO ONCE Headache 06/18/17 01/14/22 Previous Rx's Medication Instructions Recorded azithromycin 250 mg tablet 250 mg PO UD DOSE PK #6 tabs 03/22/20 fluconazole 150 mg table
[2022-01-14 08:39] LABS: Apearance,Urine Cloudy (Clear); Color,Urine Red (Yellow); Specific Gravity, Urine 1.025 (1.005-1.030)
[2022-01-14 08:40] LABS: Bilirubin,Urine 1+ (Negative); Blood, Urine Negative (Negative); Glucose,Urine (UA) 250 (Negative); Ketones,Urine TRACE (Negative); Protein,Urine 1+ (Negative); UTC Leukocyte Esterase,Urine 3+ (Negative); UTC Nitrate,Urine Positive (Negative); Urobilinogen,Urine 4 EU/dl (0.2)
[2022-01-14 08:42] VITALS: BP 109/66; PULSE 85; RESP 19; TEMP 37; O2SAT 99; BMI 25.8
[2022-01-14 09:06] VITALS: BP 109/66; PULSE 85; RESP 19; TEMP 37
== END 2022-01-14 09:07 | disposition home or self-care (01) ==
PROVIDERS: Nurse Practitioner Family; Emergency Provider Nurse Practitioner; PCP Family Medicine
DX: N39.0 Urinary tract infection, site not specified (principal)
CPT/HCPCS: 81003; 87086; 87088; 87186; 99212; G0463

== ENCOUNTER 2022-01-26 10:39 | Emergency (ER) | payer BC, MEDICAID, SELFPAY ==
[2022-01-26 10:39] VITALS: BP 157/100; PULSE 81; RESP 20; TEMP 36.7; O2SAT 100; BMI 22.9
--- NOTE | 2022-01-26 10:45 | PC.NURSE ---
ED MD AT BEDSIDE FOR EVALUATION
--- NOTE | 2022-01-26 10:50 | HMH.EDGENADL ---
Discharge Plan Disposition Patient Disposition: Home, Self-Care Condition: Fair Prescriptions Prescriptions: New methylprednisolone [Medrol (Kam)] 4 mg tablets,dose pack 4 mg PO DAILY 6 Days Qty: 21 0RF Rx Instructions: Dose pack 6 tabs on day 1, 5 tabs on day 2... All Day Allergy (cetirizine) 10 mg capsule 10 mg PO DAILY PRN (Reason: allergy symptoms) Qty: 30 0RF hydroxyzine pamoate [Vistaril] 25 mg capsule 25 mg PO BID PRN (Reason: itching) Qty: 7 0RF No Action topiramate [Topamax] 200 mg tablet 200 mg PO ONCE bupropion HCl [Wellbutrin XL] 150 mg tablet extended release 24 hr 150 mg PO QAM fluoxetine [Prozac] 10 mg capsule 10 mg PO ONCE tizanidine [Zanaflex] 2 mg capsule 2 mg PO TID PRN (Reason: Muscle Pain) azithromycin 250 MG tablet 250 mg PO UD DOSE PK Qty: 6 0RF Rx Instructions: Take two (2) tablets today, then one (1) tablet days #2 thru #5 fluconazole 150 MG tablet 150 mg PO ONCE Qty: 1 2RF ondansetron 4 MG tablet,disintegrating 4 mg PO Q8HP PRN (Reason: Nausea) Qty: 12 0RF promethazine 25 MG tablet 25 mg PO Q6H PRN (Reason: Nausea And Vomiting) Qty: 6 0RF ondansetron 4 MG tablet,disintegrating 4 mg PO Q8HP PRN (Reason: Nausea) Qty: 20 0RF cefdinir 300 mg capsule 300 mg PO BID 10 Days Qty: 20 0RF phenazopyridine [Pyridium] 200 mg tablet 200 mg PO Q8H 2 Days Qty: 6 0RF methylprednisolone 4 MG tablets,dose pack 4 mg PO DIRECTED 6 Days Qty: 21 0RF ondansetron 4 MG tablet,disintegrating 4 mg PO Q8HP PRN (Reason: Nausea) Qty: 20 0RF Referrals Follow up/Referrals: Xiomy Aviles MD [Primary Care Provider] - See instructions Activity Restrictions/Add. Instructions Additional Instructions/Restrictions: You have been evaluated for itching. Appears to be an allergic reaction. Possibly due to new pets, pet dander. Also possibly due to recent antibiotic, cefdinir. Please stop the antibiotic. Try to avoid close contact with the puppy. Take daily cetirizine. Steroid burst as prescribed. Follow-up with your primary care doctor in 1 to 2 days for symptom recheck. Return to the emergency department at once for any new or worsening symptoms, wheezing, difficulty breathing, intraoral lesions, rash, any other concerns. Clinical Impressions Clinical Impression: Allergic reaction, Itching Instructions Patient Instructions: DI for General Allergic Reactions, DI for Adverse Drug Reaction -- Allergic, DI for Itching Discharge ED Provider: Diane Mcghee General Adult HPI General Chief complaint: Shortness of Breath/Dyspnea Stated complaint: SOA, Itching, possible reaction med Time Seen by Provider: 01/26/22 10:44 History of Present Illness HPI narrative: 51-year-old female presenting to the emergency department with itching, possible allergic reaction. Symptoms started 2 days ago. She will have itching of her abdomen, forearms. Symptoms are worse at night. She has been taking Benadryl. Does not seem to be making her symptoms better. No wheezing, difficulty breathing, nausea, vomiting. Family recently got a puppy. She also has been on cefdinir for treatment of urinary tract infection. She is on her last day of the antibiotic. Has had an allergic reaction to doxycycline before. No other known medication allergies. She denies history of food or environmental allergies. No new lotions, soaps, detergent. no rash on the palms, soles, face Related Data Home Medications Medication Instructions Recorded Confirmed bupropion HCl 150 mg 24 hr tablet, 150 mg PO QAM MOOD 06/18/17 01/14/22 extended release (Wellbutrin XL) fluoxetine 10 mg capsule (Prozac) 10 mg PO ONCE Anxiety 06/18/17 01/14/22 tizanidine 2 mg capsule (Zanaflex) 2 mg PO TID PRN Muscle Pain 06/18/17 01/14/22 topiramate 200 mg tablet (Topamax) 200 mg PO ONCE Headache 06/18/17 01/14/22 Previous Rx's Medication Instructions Record
[2022-01-26 11:00] VITALS: BP 135/83; PULSE 71; O2SAT 100
[2022-01-26 11:09] LABS: Basophils # 0.1 K/mm3 (0-0.2); Basophils % 1.2 % (0.1-2.0); Eosinophils # 0.1 K/mm3 (0.0-0.4); Eosinophils % 0.9 % (0.1-12.0); Hematocrit 40.8 % (37.0-47.0); Hemoglobin 13.2 g/dL (12.2-16.2); Lymphocytes # 1.6 K/mm3 (0.7-4.5); Lymphocytes % 33.8 % (10-50); Mean Corpuscular HGB Conc 32.3 g/dL (31.8-35.4); Mean Corpuscular Hemoglobin 30.8 pg (27.0-31.2); Mean Corpuscular Volume 95.5 fl (81-99); Mean Platelet Volume 7.5 fl (7.4-10.4); Monocytes # 0.2 K/mm3 (0.1-1.0); Monocytes % 4.2 % (1.7-9.3); Neutrophils # 2.9 K/mm3 (1.8-7.8); Neutrophils % 59.8 % (37.0-80.0); Platelet Count 241 K/mm3 (142-424); Red Blood Count 4.27 M/mm3 (4.20-5.40); Red Cell Distribution Width 12.9 % (11.5-17.5); White Blood Count 4.8 K/mm3 (4.8-10.8)
[2022-01-26 11:12] LABS: Alanine Aminotransferase 20 U/L (12-78); Albumin Level 4.9 g/dl (3.5-5.0); Albumin/Globulin Ratio 1.7 (1.1-1.8); Alkaline Phosphatase 101 U/L (38-126); Anion Gap 16.3 mEq/L (5-15); Aspartate Amino Transferase 33 U/L (14-36); Bilirubin,Total 0.4 mg/dl (0.2-1.3); Blood Urea Nitrogen 10 mg/dl (7-17); Calcium 9.4 mg/dl (8.4-10.2); Carbon Dioxide 24 mmol/L (22.0-30.0); Chloride 109 mmol/L (98-107); Creatinine Clearance Estimated 75 mL/min (50-200); Estimated Glomerular Filt Rate 58 ml/min (>60); GFR (African American) 70 ML/MIN (>60); Globulin 2.9 g/dL (1.3-3.2); Glucose 55 mg/dl (74-100); Potassium 3.3 mmoL/L (3.5-5.1); Sodium 146 mmol/L (136-145); Total Protein,Serum 7.8 g/dl (6.3-8.2)
[2022-01-26 11:19] LABS: C-Reactive Protein 1.3 mg/L (0-4)
[2022-01-26 11:30] VITALS: BP 103/67; PULSE 65; O2SAT 100
[2022-01-26 11:39] LABS: Erythrocyte Sedimentation Rate 16 mm/hr (0-30)
--- NOTE | 2022-01-26 12:28 | PC.NURSE ---
PT REPORTS FEELING BETTER, NO NEEDS AT THIS TIME
[2022-01-26 12:30] VITALS: BP 106/65; PULSE 60; O2SAT 100
[2022-01-26 13:00] VITALS: BP 117/80; PULSE 78; RESP 16; O2SAT 100
[2022-01-26 13:26] VITALS: BP 117/80; PULSE 78; RESP 16; TEMP 36.7; O2SAT 100
== END 2022-01-26 13:26 | disposition home or self-care (01) ==
PROVIDERS: Emergency Provider Emergency Medicine; PCP Family Medicine
DX: T78.40XA Allergy, unspecified, initial encounter (principal); L29.9 Pruritus, unspecified; Z79.899 Other long term (current) drug therapy; F41.9 Anxiety disorder, unspecified; Z88.1 Allergy status to other antibiotic agents; Z88.8 Allergy status to other drugs, medicaments and biological substances
CPT/HCPCS: 80053; 85025; 85651; 86140; 96365; 96375; 99284

== ENCOUNTER 2023-03-09 16:09 | Emergency (ER) | payer BC, MEDICAID, SELFPAY ==
[2023-03-09 16:11] VITALS: BP 145/96; PULSE 82; RESP 18; TEMP 36.7; O2SAT 99; BMI 19.5
--- NOTE | 2023-03-09 16:24 | ECG_ITS ---
APPROVED REPORT Exam: Resting ECG HR:77 bpm ECG Measurements Heart Rate 77 AXES TN 149 P 79 QRSd 102 QRS 80 QT 368 T 77 QTc 399 Conclusion SINUS RHYTHM POSSIBLE RIGHT ATRIAL ENLARGEMENT [0.25mV P-WAVE] POSSIBLE RIGHT VENTRICULAR CONDUCTION DELAY [RSR (QR) IN V1/V2] BORDERLINE ECG UNCONFIRMED REPORT Electronically signed by : Ian Thomason MD 03/10/2023 08:27:29
--- NOTE | 2023-03-09 16:30 | XR_ITS ---
PROCEDURE INFORMATION: Exam: XR Chest Exam date and time: 03/09/2023 4:50 PM Age: 52 years old Clinical indication: Dyspnea TECHNIQUE: Imaging protocol: Radiologic exam of the chest. Views: 1 view. COMPARISON: CR XR CHEST 2V 04/26/2021 3:39 PM FINDINGS: Lungs: Unremarkable. No consolidation. Pleural spaces: Unremarkable. No pleural effusion. No pneumothorax. Heart/Mediastinum: Unremarkable. No cardiomegaly. Bones/joints: Unremarkable. IMPRESSION: No acute findings.
--- NOTE | 2023-03-09 16:31 | HMH.EDGENADL ---
Discharge Plan Disposition Patient Disposition: Home, Self-Care Prescriptions Prescriptions: No Action topiramate [Topamax] 200 mg tablet 200 mg PO ONCE bupropion HCl [Wellbutrin XL] 150 mg tablet extended release 24 hr 150 mg PO QAM fluoxetine [Prozac] 10 mg capsule 10 mg PO ONCE tizanidine [Zanaflex] 2 mg capsule 2 mg PO TID PRN (Reason: Muscle Pain) azithromycin 250 MG tablet 250 mg PO UD DOSE PK Qty: 6 0RF Rx Instructions: Take two (2) tablets today, then one (1) tablet days #2 thru #5 fluconazole 150 MG tablet 150 mg PO ONCE Qty: 1 2RF ondansetron 4 MG tablet,disintegrating 4 mg PO Q8HP PRN (Reason: Nausea) Qty: 12 0RF promethazine 25 MG tablet 25 mg PO Q6H PRN (Reason: Nausea And Vomiting) Qty: 6 0RF ondansetron 4 MG tablet,disintegrating 4 mg PO Q8HP PRN (Reason: Nausea) Qty: 20 0RF cefdinir 300 mg capsule 300 mg PO BID 10 Days Qty: 20 0RF phenazopyridine [Pyridium] 200 mg tablet 200 mg PO Q8H 2 Days Qty: 6 0RF methylprednisolone [Medrol (Kam)] 4 mg tablets,dose pack 4 mg PO DAILY 6 Days Qty: 21 0RF Rx Instructions: Dose pack 6 tabs on day 1, 5 tabs on day 2... All Day Allergy (cetirizine) 10 mg capsule 10 mg PO DAILY PRN (Reason: allergy symptoms) Qty: 30 0RF hydroxyzine pamoate [Vistaril] 25 mg capsule 25 mg PO BID PRN (Reason: itching) Qty: 7 0RF methylprednisolone 4 MG tablets,dose pack 4 mg PO DIRECTED 6 Days Qty: 21 0RF ondansetron 4 MG tablet,disintegrating 4 mg PO Q8HP PRN (Reason: Nausea) Qty: 20 0RF Referrals Follow up/Referrals: Xiomy Aviles MD [Primary Care Provider] - See instructions Activity Restrictions/Add. Instructions Additional Instructions/Restrictions: No evidence of an acute cardiopulmonary emergency identified on your evaluation today. Please continue to take [id number] medications as discussed and return with any worsening symptoms. Your symptoms should be self-limiting however. 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 States that her shortness of breath has worsened over the last week she denies any lower extremity swelling denies any hemoptysis history of DVT or PE history of heart failure or any other cardiopulmonary disease in the past. Headache is mild it has been progressively worsening. No neurologic symptoms or high fever associated with this. She states she has had decreased p.o. intake with this as well. Primary rationale for come to the emergency department has been dyspnea. Related Data Home Medications Medication Instructions Recorded Confirmed bupropion HCl 150 mg 24 hr tablet, 150 mg PO QAM MOOD 06/18/17 01/14/22 extended release (Wellbutrin XL) fluoxetine 10 mg capsule (Prozac) 10 mg PO ONCE Anxiety 06/18/17 01/14/22 tizanidine 2 mg capsule (Zanaflex) 2 mg PO TID PRN Muscle Pain 06/18/17 01/14/22 topiramate 200 mg tablet (Topamax) 200 mg PO ONCE Headache 06/18/17 01/14/22 Previous Rx's Medication Instructions Recorded azithromycin 250 mg tablet 250 mg PO UD DOSE PK #6 tabs 03/22/20 fluconazole 150 mg tablet 150 mg PO ONCE #1 tab 03/22/20 ondansetron 4 mg disintegrating 4 mg PO Q8HP PRN Nausea ##12 03/22/20 tablet promethazine 25 mg tablet 25 mg PO Q6H PRN Nausea And 02/15/21 Vomiting #6 tabs methylprednisolone 4 mg tablets in 4 mg PO DIRECTED 6 days #21 04/16/21 a dose pack packets ondansetron 4 mg disintegrating 4 mg PO Q8HP PRN Nausea #20 tabs 04/16/21 tablet ondansetron 4 mg disintegratin
[2023-03-09 16:46] LABS: Basophils % 0.4 % (0.1-2.0); Eosinophils % 0.7 % (0.1-12.0); Hematocrit 43.3 % (37.0-47.0); Hemoglobin 14.3 g/dL (12.2-16.2); Lymphocytes # 2.5 K/mm3 (0.7-4.5); Lymphocytes % 44.4 % (10-50); Mean Corpuscular Hemoglobin 31.1 pg (27.0-31.2); Mean Corpuscular Volume 94.2 fl (81-99); Mean Platelet Volume 7.7 fl (7.4-10.4); Monocytes # 0.2 K/mm3 (0.1-1.0); Monocytes % 4.2 % (1.7-9.3); Neutrophils # 2.8 K/mm3 (1.8-7.8); Neutrophils % 50.2 % (37.0-80.0); Platelet Count 256 K/mm3 (142-424); Red Blood Count 4.59 M/mm3 (4.20-5.40); Red Cell Distribution Width 13.2 % (11.5-17.5); White Blood Count 5.5 K/mm3 (4.8-10.8)
[2023-03-09 16:52] LABS: Alanine Aminotransferase 20 U/L (12-78); Albumin Level 5.1 g/dl (3.5-5.0); Albumin/Globulin Ratio 1.5 (1.1-1.8); Alkaline Phosphatase 65 U/L (38-126); Anion Gap 11.6 mEq/L (5-15); Aspartate Amino Transferase 33 U/L (14-36); Bilirubin,Total 0.5 mg/dl (0.2-1.3); Blood Urea Nitrogen 11 mg/dl (7-17); Calcium 9.6 mg/dl (8.4-10.2); Carbon Dioxide 25 mmol/L (22.0-30.0); Chloride 105 mmol/L (98-107); Creatinine Clearance Estimated 63 mL/min (50-200); Estimated Glomerular Filt Rate 58 ml/min (>60); GFR (African American) 70 ML/MIN (>60); Globulin 3.4 g/dL (1.3-3.2); Glucose 79 mg/dl (74-100); Potassium 3.6 mmoL/L (3.5-5.1); Sodium 138 mmol/L (136-145); Total Protein,Serum 8.5 g/dl (6.3-8.2)
[2023-03-09 16:57] LABS: D-Dimer 0.58 ug/mL (0.0-0.5)
[2023-03-09 17:05] LABS: NT Pro Brain Natriuretic Pep. 29.6 pg/mL (0-125)
[2023-03-09 17:08] LABS: Troponin I < 0.01 ng/ml (0.00-0.034)
[2023-03-09 17:42] VITALS: BP 134/94; PULSE 73; RESP 20; TEMP 36.9; O2SAT 100
== END 2023-03-09 17:43 | disposition home or self-care (01) ==
PROVIDERS: Emergency Provider Student in an Organized Health Care Education/Training Program; PCP Family Medicine
DX: U07.1 COVID-19 (principal); R51.9 Headache, unspecified; R06.00 Dyspnea, unspecified; Q79.60 Ehlers-Danlos syndrome, unspecified
CPT/HCPCS: 71045; 80053; 83880; 84484; 85025; 85378; 93005; 96361; 96374; 99285

== ENCOUNTER 2024-02-01 11:43 | Emergency (ER) | payer BC, MEDICAID, SELFPAY ==
--- OUTSIDE RECORDS SUMMARY | 2024-02-01 11:54 | XMS_ITS ---
Care Plan - [facility], [facility] Created on: February 01, 2024 CASPER CUNNINGHAM : 1970 Sex: Female Author Organization [facility] , [facility] Address [address] [place] [address] Phone Care Team Providers Care Body Builder Name Role Phone CHAIM OLIVEIRA Unavailable [phone] Ezequiel FULLER, Coy Unavailable [phone] Stefan FULLER, Xiomy Primary Care Provider [phone]
--- OUTSIDE RECORDS SUMMARY | 2024-02-01 11:54 | XMS_ITS ---
Author Organization [facility] Address [address] [place] [address] Phone Care Team Providers Care Fitness Instructor Name Role Phone CHAIM OLIVEIRA Unavailable [phone] Ezequiel FULLER, Coy Unavailable [phone] Xiomy Aviles MD Primary Care Provider [phone] Reason for Referral Date Encounter Description Provider Reason for Referral 08/17/20 Physician Specified Victor Manuel Kyle MD Referral To Physician 07/30/20 Follow Up Coy Nieves MD Referral To Physician - to see pcp for bp ~ 02/20/20 Follow Up Coy Nieves MD Referral To Physician - to see pcp for bp ~ Problems Includes: Active, inactive, and resolved Problems All Visits Onset Date Resolved Date Provider Condition S tatus Joint Pain in the Right Hip 12/28/2021 Coy Nieves MD Active Last Documented On 2 2:02PM ; [facility] History of Joint Pain, Local ized in the Left Shoulder 08/17/2020 Victor Manuel Kyle MD Active Last Documented On 1 1:28PM ; [facility] Joint Pain in the Left Hip 12/29/2017 Coy cisse MD Active Last Documented On 8 9:58AM ; [facility] Plan of Treatment Pending Tests Order Diagnosis Results Due Ordering P rovider Radiology - MRI MRI Hip 01/08/18 Coy cisse MD Last Documented On 9 9:32AM ; [facility] Instructions to patient Instructions for patient SEE PCP FOR BP AND WT Last Documented On 1 11:03AM ; [facility] Instructions for patient SEE PCP FOR BP AND WT Last Documented On 0 11:21AM ; [facility] Instructions for patient SEE PCP FOR BP AND WT Last Documented On 0 2:42PM ; [facility] Instructions for patient SEE PCP FOR BP AND WT Last Documented On 0 9:27AM ; [facility] Instructions for patient SEE PCP FOR BP AND WT Last Documented On 0 10:27AM ; [facility] Instructions for patient Last Documented On 0 9:55AM ; [facility] Instructions for patient to see pcp for bp Last Documented On 0 9:08AM ; [facility] Instructions for patient Last Documented On 0 9:33AM ; [facility] Assessments Includes: Assessments for all patient encounters No Assessments Recorded Instructions Includes: Instructions for all patient encounters Instructions to patient Instructions for patient SEE PCP FOR BP AND WT Last Documented On 1 11:03AM ; [facility] Instructions for patient SEE PCP FOR BP AND WT Last Documented On 0 11:21AM ; [facility] Instructions for patient SEE PCP FOR BP AND WT Last Documented On 0 2:42PM ; [facility] Instructions for patient SEE PCP FOR BP AND WT Last Documented On 0 9:27AM ; [facility] Instructions for patient SEE PCP FOR BP AND WT Last Documented On 0 10:27AM ; [facility] Instructions for patient Last Documented On 0 9:55AM ; [facility] Instructions for patient to see pcp for bp Last Documented On 0 9:08AM ; [facility] Instructions for patient Last Documented On 0 9:33AM ; [facility] Medical Equipment - Implanted Devices Includes: Current and historical Devices No Medical Equipment Recorded Medications Includes: Current and historical Medications Current Medications (continue as prescribed) Wellbutrin XL 150 MG Oral Ta blet Extended Release 24 Hour 12/15/2021 Provider: CHAIM OLIVEIRA Diagnosis: Last Documented On 2 1:17PM By Carol Kiran ; [facility], [facility] Cyanocobalamin 1000 MCG/ML Injection Solution 12/16/19 Provider: Xiomy Aviles MD Diagnosis: Last Documented On 2 1:17PM By Carol Kiran ; [facility], [facility] Synthroid 50 MCG Oral Tablet 12/15/2021 Provider: CHAIM OLIVEIRA Diagnosis: Last Documented On 2 1:17PM By Carol Kiran ; [facility], [facility] tiZANidine HCl 4 MG Oral Tablet 11/17/2021 Provider: Xiomy Aivles MD Diagnosis: Last Documented On 2 1:17PM By Carol Kiran ; [facility], [facility] Topamax 100 MG Oral Tablet 11/15/2021 Provider: Kiet OLIVEIRA Diagnosis: Last Documented On 2 1:17PM By Carol Kiran ; [facility], [facility] SUMAtriptan Succinate 100 MG Oral Tablet 11/15/2021 Provider: CHAIM OLIVEIRA Diagnosis: Last Documented On 2 1:17PM By Carol Kiran ; [facility], [facility] Eszopiclone 1 MG Oral Tablet 11/12/2021 Provider: Xiomy Aviles MD Diagnosis: Last Documented On 2 1:17PM By Carol Kiran ; [facility], [facility] ALPRAZolam 0.5 MG Oral Tablet 11/12/2021 Provider: Xiomy Aviles MD Diagnosis: Last Documented On 2 1:17PM By Carol Kiran ; [facility], [facility] Lidocaine 5% External Patch 11/12/2021 Provider: Xiomy Aviles MD Diagnosis: Last Documented On 2 1:17PM By Carol Kiran ; [facility], [facility] Nurtec 75 MG Oral Tablet Disintegrating 10/18/2021 P carlylevider: ROSA SOLIMAN MD Diagnosis: Last Documented On 2 1:18PM By Carol Kiran ; [facility], [facility] Past Medications on file Ibuprofen 800 MG Oral Tablet 12/29/2021 - 01/28/2022 Miley chapa: Coy Nieves MD Diagnosis: three times a day Last Documented On 2 4:08PM By Coy Nieves ; [facility], [facility] Ibuprofen-Famotidine 800-26. 6 MG Oral Tablet 12/28/2021 - 07/26/2022 Provider: Coy Nieves MD Diagnosis: twice a day Last Documented On 2 2:40PM By Coy Nieves ; [facility] Duexis 800-26.6 MG Oral Tablet 12/01/2021 - 03/01/2022 Provider: Sahil siddiqui PA-C Diagnosis: three times a day take 1 tablet three times viky y Last Documented On 2 3:39PM By Mariam Henriquez ; [facility] Qulipta 60 MG Oral Tablet 11/15/2021 - 12/15/2021 Prov ider: ROSA SOLIMAN MD Diagnosis: Last Documented On 2 1:28PM By Carol Kiran ; [facility] Eszopiclone 1 MG Oral Tablet 10/12/2021 - 12/15/2021 Miley chapa: Xiomy Aviles MD Diagnosis: Last Documented On 2 1:29PM By Carol Kiran ; [facility] Famotidine 20 MG Oral Tablet 09/11/2021 - 12/15/2021 Miley Aviles MD Diagnosis: Last Documented On 2 1:30PM By Carol Kiran ; [facility] Duexis 800-26.6 MG Oral Tablet 08/17/2021 - 04/14/2022 Provider: Coy Nieves MD Diagnosis: 1 tablet three times daily Last Documented On 2 11:26AM By Coy Nieves ; [facility] Duexis 800-26.6 MG Oral Tablet 04/19/2021 - 07/18/2021 Provider: Coy Nieves MD Diagnosis: three times a day take 1 tablet three times viky y Last Documented On 2 4:10PM By Linette Joy ; [facility] traMADol HCl 50 MG Oral Tablet 11/30/2020 - 01/09/2021 Provider: Coy Nieves MD Diagnosis: Take 1 tablet every 8 hrs prn pain Last Documented On 1 9:39AM By Coy Nieves ; [facility] Isosorbide Dinitrate 10 MG O ral Tablet 08/12/2020 - 12/15/2021 Provider: CHAIM OLIVEIRA Diagnosis: Last Documented On 2 1:20PM By Carol Kiran ; [facility], [facility] Duexis 800-26.6 MG Oral Tablet 07/30/2020 - 10/28/2020 Provider: Coy Nieves MD Diagnosis: three times a day take 1 tablet three times viky y Last Documented On 11:47AM By Coy Nieves ; [facility] Lidoderm 5% External Patch 07/30/2020 - 12/27/2020 Pro vider: Coy Nieves MD Diagnosis: apply as directed one one time a day Last Documented On 11:49AM By Coy Nieves ; [facility] traMADol HCl 50 MG Oral Tablet 07/30/2020 - 09/08/2020 Provider: Coy Nieves MD Diagnosis: Take 1 tablet every 8 hrs prn pain Last Documented On 11:52AM By Coy Nieves ; [facility] CVS Vitamin C 1000 MG Oral Tablet 07/30/2020 - 022 Provider: Diagnosis: Last Documented On 2 1:20PM By Carol Kiran ; [facility] Calcium 150 MG Oral Tablet 07/30/2020 - 12/15/2021 Pro vider: Diagnosis: Last Documented On 2 1:20PM By Carol Kiran ; [facility] Daily Multiple Oral Tablet 07/30/2020 - 12/15/2021 Provider: Diagnosis: Last Documented On 2 1:20PM By Carol Kiran ; [facility] tiZANidine HCl 4 MG Oral Capsule 07/30/2020 - 12/16/19 Provider: Diagnosis: Last Documented On 2 1:20PM By Carol Kiran ; [facility] Albuterol Sulfate (2.5 MG/3M L) 0.083% Inhalation Nebulization solution 07/30/2020 - 12/15/2021 Provider: Diagnosis: Last Documented On 2 1:20PM By Carol Kiran ; [facility] traMADol HCl 50 MG Oral Tablet 05/07/2020 - 05/27/2020 Provider: Coy Nieves MD Diagnosis: Take 1 tablet every 8 hrs prn pain Last Documented On 1 5:08PM By Coy Nieves ; [facility] traMADol HCl 50 MG Oral Tablet 02/25/2020 - 03/16/2020 Provider: Coy Nieves MD Diagnosis: Take 1 tablet every 8 hrs prn pain Last Documented On 0 4:10PM By Mami Norton ; [facility] traMADol HCl 50 MG Oral Tablet 01/09/2020 - 01/29/2020 Provider: Coy Nieves MD Diagnosis: Take 1 tablet every 8 hrs prn pain Last Documented On 0 1:13PM By Mami Norton ; [facility] Cyclobenzaprine HCl 10 MG Or al Tablet 11/20/2019 - 11/25/2019 Provider: Coy Nieves MD Diagnosis: twice a day Last Documented On 0 12:06PM By Mami Norton ; [facility] traMADol HCl 50 MG Oral Tablet 11/18/2019 - 12/08/2019 Provider: Coy Nieves MD Diagnosis: three times a day Last Documented On 0 1:38PM By Mami Norton ; [facility] Duexis 800-26.6 MG Oral Tablet 09/17/2019 - 12/16/2019 Provider: Coy Nieves MD Diagnosis: three times a day take 1 tablet three times viky y Last Documented On 0 11:33AM By Nannette Thomas ; [facility] traMADol HCl 50 MG Oral Tablet 09/17/2019 - 10/07/2019 Provider: Coy Nieves MD Diagnosis: three times a day Last Documented On 0 11:24AM By Nannette Thomas ; [facility] traMADol HCl 50 MG Oral Tablet 07/30/2019 - 07/30/2020 Provider: Coy Nieves MD Diagnosis: three times a day Last Documented On 1 11:47AM By Zari Zamora ; [facility] Xanax 0.5 MG Oral Tablet 06/20/2019 - 10/29/2019 Provi que: Coy Nieves MD Diagnosis: 1 every bedtime Last Documented On 0 9:28AM By Nannette Thomas ; [facility], [facility] Duexis 800-26.6 MG Oral Tablet 05/14/2019 - 10/29/2019 Provider: Coy Nieves MD Diagnosis: three times a day take 1 tablet three times viky y Last Documented On 0 9:28AM By Nannette Thomas ; [facility], [facility] Cyclobenzaprine HCl 5 MG Ora l Tablet 05/14/2019 - 07/30/2020 Provider: Coy Nieves MD Diagnosis: Take 1 tablet every 8 hrs prn pain Last Documented On 1 11:47AM By Zari Zamora ; [facility] Ultram 50 MG Oral Tablet 05/14/2019 - 10/29/2019 Provi que: Coy Nieves MD Diagnosis: 1 tablet four times a day Last Documented On 0 9:29AM By Nannette Thomas ; [facility], [facility] Dexamethasone Sodium Phospha te 4 MG/ML Injection Solution 05/14/2019 - 07/30/2020 Provider: Coy lu MD Diagnosis: use as directed- to be used by physical therapy Last Documented On 1 11:47AM By aZri Zamora ; [facility], [facility] [place] 5-325 MG Oral Tablet 04/25/2019 - 10/29/2019 Pro vider: Coy Nieves MD Diagnosis: 1 every bedtime- NO REFILLS Last Documented On 0 9:28AM By Nannette Thomas ; [facility] Ultram 50 MG Oral Tablet 04/25/2019 - 10/29/2019 Provi que: Coy Nieves MD Diagnosis: 1 TABLET twice a day Last Documented On 0 9:28AM By Nannette Thomas ; [facility] Cyclobenzaprine HCl 10 MG Or al Tablet 04/25/2019 - 10/29/2019 Provider: Coy Nieves MD Diagnosis: 1 every bedtime Last Documented On 0 9:26AM By Nannette Thomas ; [facility] Cyclobenzaprine HCl 10 MG Or al Tablet 04/05/2019 - 10/29/2019 Provider: Coy Nieves MD Diagnosis: 1 every bedtime Last Documented On 0 9:28AM By Nannette Thomas ; [facility] Ultram 50 MG Oral Tablet 03/15/2019 - 03/25/2019 Provi que: Coy Nieves MD Diagnosis: 1-2 po q 4-6h 1-2 tablets by mouth every 4-6hrs for post op pain Last Documented On 9 12:50PM By Jocelynn Pardo ; [facility] Scopolamine 1 MG/3DAYS Trans dermal Patch 72 Hour 03/05/2019 - 10/29/2019 Provider: Coy Nieves MD Diagnosis: take as directed: APPLY PATC H TO SKIN BEHIND THE EAR - REMOVE AFTER 3 DAYS Last Documented On 0 9:28AM By Nannette Thomas ; [facility] Ultram 50 MG Oral Tablet 03/05/2019 - 10/29/2019 Provi que: Coy Nieves MD Diagnosis: 2 tablets every 6 hours Last Documented On 0 9:28AM By Nannette Thomas ; [facility] Ultram 50 MG Oral Tablet 02/15/2019 - 10/29/2019 Provi que: Coy Nieves MD Diagnosis: three times a day Last Documented On 0 9:26AM By Nannette Thomas ; [facility] Synthroid 50 MCG Oral Tablet 02/14/2019 - 12/15/2021 Miley chapa: CHAIM OLIVEIRA Diagnosis: Last Documented On 2 1:20PM By Carol Kiran ; [facility] Ultram 50MG Oral Tablet 12/18/2018 - 10/29/2019 Provid er: Coy Nieves MD Diagnosis: three times a day Last Documented On 0 9:27AM By Nannette Thomas ; [facility] Ultram 50MG Oral Tablet 09/04/2018 - 02/15/2019 Provid er: Coy Nieves MD Diagnosis: Take 1 tablet every 8 hrs prn pain Last Documented On 9 1:10PM By Carey Alex ; [facility] Duexis 800-26.6MG Oral Tablet 09/04/2018 - 02/15/2019 Provider: Coy Nieves MD Diagnosis: three times a day take 1 tablet three times viky y Last Documented On 9 1:10PM By Carey Alex ; [facility] Ultram 50MG Oral Tablet 06/26/2018 - 02/15/2019 Provid er: Coy Nieves MD Diagnosis: Take 1 tablet every 8 hrs prn pain Last Documented On 9 1:10PM By Carey Alex ; [facility] Duexis 800-26.6MG Oral Tablet 04/27/2018 - 02/15/2019 Provider: Coy Nieves MD Diagnosis: three times a day take 1 tablet three times viky y Last Documented On 9 1:10PM By Carey Alex ; [facility] Ultram 50MG Oral Tablet 04/24/2018 - 06/05/2018 Provid er: Coy Nieves MD Diagnosis: twice a day Last Documented On 9 9:58AM By Mariam Gaspar ; [facility], [facility] Pennsaid 2% Transdermal Solution 04/10/2018 - 02/16/20 19 Provider: Coy Nieves MD Diagnosis: take as directedapply 2 pump s to affected area 2 times a day Last Documented On 9 1:10PM By Carey Alex ; [facility], [facility] Robaxin-750 Oral Tablet 04/10/2018 - 06/05/2018 Provid er: Coy Nieves MD Diagnosis: twice a day Last Documented On 9 9:58AM By Mariam Gaspar ; [facility], [facility] Skelaxin 800MG Oral Tablet 02/27/2018 - 06/26/2018 Pro vider: Coy Nieves MD Diagnosis: three times a day Last Documented On 9 11:10AM By Mariam Gaspar ; [facility] Ultram 50MG Oral Tablet 01/25/2018 - 02/15/2019 Provid er: Coy Nieves MD Diagnosis: Take 1 tablet every 8 hrs prn pain Last Documented On 9 1:10PM By Carey Alex ; [facility] Pennsaid 2% Transdermal Solution 01/25/2018 - 06/06/19 19 Provider: Coy Nieves MD Diagnosis: take as directedapply 2 pump s to affected area 2 times a day Last Documented On 9 9:58AM By Mariam Gaspar ; [facility] Pennsaid 2% Transdermal Solution 12/28/2017 - 06/06/19 19 Provider: Coy Nieves MD Diagnosis: take as directedapply 2 pump s to affected area 2 times a day Last Documented On 9 9:58AM By Mariam Gaspar ; [facility], [facility] Duexis 800-26.6MG Oral Tablet 12/28/2017 - 06/26/2018 Provider: Coy Nieves MD Diagnosis: three times a day take 1 tablet three times viky y Last Documented On 9 11:10AM By Mariam Gaspar ; [facility], [facility] Prometrium 100MG Oral Capsule 12/25/2017 - 10/29/2019 Provider: Diagnosis: Last Documented On 0 9:30AM By Nannette Thomas ; [facility], [facility] Imitrex 50MG Oral Tablet 12/25/2017 - 12/15/2021 Provi que: Diagnosis: Last Documented On 2 1:19PM By Carol Kiran ; [facility], [facility] DHEA 1% External Cream 12/25/2017 - 03/05/2019 Provide r: Diagnosis: Last Documented On 9 10:51AM By Ester Browning ; [facility], [facility] [place] 5-325MG Oral Tablet 12/25/2017 - 06/26/2018 Prov ider: Diagnosis: Last Documented On 9 11:10AM By Mariam Gaspar ; [facility], [facility] Vitamin B-12 1000MCG Oral Tablet 12/25/2017 - 12/02 Provider: Diagnosis: Last Documented On 2 1:19PM By Carol Kiran ; [facility], [facility] Lasix 20MG Oral Tablet 12/25/2017 - 07/30/2020 Provide r: Diagnosis: Last Documented On 1 11:48AM By Zari Zamora ; [facility] Robaxin-750 Oral Tablet 12/25/2017 - 03/05/2019 Provid er: Diagnosis: Last Documented On 9 10:50AM By Ester Browning ; [facility] Cyclobenzaprine HCl 5MG Oral Tablet 12/25/2017 - 06/26 Provider: Coy Nieves MD Diagnosis: 1 every bedtime Last Documented On 9 11:10AM By Mariam Gaspar ; [facility] Topamax 200MG Oral Tablet 12/25/2017 - 12/15/2021 Prov ider: Diagnosis: Last Documented On 2 1:19PM By Carol Kiran ; [facility] Wellbutrin SR 150MG Oral Tab let Extended Release 12 Hour 12/25/2017 - 12/15/2021 Provider: Diagnosis: Last Documented On 2 1:19PM By Carol Kiran ; [facility] PROzac 10MG Oral Capsule 12/25/2017 - 12/15/2021 Provi que: Diagnosis: Last Documented On 2 1:19PM By Carol Kiran ; [facility] Ultram 50MG Oral Tablet 12/25/2017 - 06/05/2018 Provid er: Coy Nieves MD Diagnosis: twice a day Last Documented On 9 9:59AM By Mariam Gaspar ; [facility] Methocarbamol 750MG Oral Tablet 12/22/2017 - 9 Provider: Diagnosis: Last Documented On 9 11:10AM By Mariam Gaspar ; [facility] PredniSONE 20MG Oral Tablet 12/20/2017 - 03/05/2019 Pr ovider: Diagnosis: Last Documented On 9 10:50AM By Ester Browning ; [facility] Movantik 25MG Oral Tablet 12/20/2017 - 10/29/2019 Prov ider: Diagnosis: Last Documented On 0 9:29AM By Nannette Thomas ; [facility] 1st Medx-Patch/ Lidocaine 4-0.025-5-20% External Patch 12/18/2017 - 10/29/2019 Provider: CHAIM MOULTON Diagnosis: Last Documented On 0 9:29AM By Nannette Thomas ; [facility] Hydrocortisone 2.5% External Cream 12/13/2017 - 2018 Provider: Diagnosis: Last Documented On 9 11:11AM By Mariam Gaspar ; [facility] ROPINIRole HCl 0.5MG Oral Tablet 12/12/2017 - 03/05/20 19 Provider: Diagnosis: Last Documented On 9 10:51AM By Ester Browning ; [facility] MedroxyPROGESTERone Acetate 10MG Oral Tablet 8 - 03/05/2019 Provider: Diagnosis: Last Documented On 9 10:51AM By Ester Browning ; [facility] Furosemide 20MG Oral Tablet 12/11/2017 - 12/15/2021 Pr ovider: Diagnosis: Last Documented On 2 1:19PM By Carol Kiran ; [facility] Benzonatate 150MG Oral Capsule 12/01/2017 - 06/26/2018 Provider: Diagnosis: Last Documented On 9 11:11AM By Mariam Gaspar ; [facility], [facility] Medications Administered Includes: Administered Medications in patient's chart No Administered Medications Recorded Results Includes: Results from 01/31/2023 through 02/01/2024 No Results Recorded For Specified Dates History of Present Illness History of Present Illness not supported for this document type No History of Present Illness Recorded Social History Description Last Updated Tobacco non-user 12/01/2021 Last Documented On 2 10:10AM ; [facility] Exercising regularly 07/30/2020 Last Documented On 1 7:48AM ; [facility] Non-smoker 02/20/2020 Last Documented On 0 2:29PM ; [facility] No recent change in diet 02/20/2020 Last Documented On 0 2:29PM ; [facility] Not a current smoker. 02/20/2020 Last Documented On 0 2:29PM ; [facility], [facility] Not using drugs 02/20/2020 Last Documented On 0 2:29PM ; [facility], [facility] Alcohol use seldom 12/18/2018 Last Documented On 1 2:57PM ; [facility], [facility] Caffeine use seldom 12/18/2018 Last Documented On 1 2:57PM ; [facility], [facility] Not a current smoker 12/25/2017 Last Documented On 9 9:32AM ; [facility], [facility] No tobacco use 12/25/2017 Last Documented On 9 9:32AM ; [facility], [facility] Smoking status : Former smoker 8 Last Documented On 9 9:32AM ; [facility], [facility] Procedures and Surgical History Surgical History Last Updated History of heart surgery 12/25/2017 Last Documented On 9 9:32AM ; [facility], [facility] Medical History Includes: Medical History in patient's chart Description Last Updated Asthma 07/30/2020 Last Documented On 1 7:48AM ; [facility], [facility] Irregular Heartbeat 07/30/2020 Last Documented On 1 7:48AM ; [facility], [facility] Thyroid Disease 07/30/2020 Last Documented On 1 7:48AM ; [facility], [facility] Heart surgery 07/30/2020 Last Documented On 1 7:48AM ; [facility], [facility] History of Gallbladder 07/30/2020 Last Documented On 1 7:48AM ; [facility], [facility] Past Surgical History: Thori ac outlet (rib resection), Bilateral thumbs, Bilateral carpal tunnel, Right hip, breast biopsy x3, tubal, , D & C X2 07/30/2020 Last Documented On 1 7:48AM ; [facility], [facility] Previous Fractures 07/30/2020 Last Documented On 1 7:48AM ; [facility], [facility] Recent immunization for flu 02/02/2020 1 04/04/2019 07/30/2020 Last Documented On 1 7:48AM ; [facility], [facility] No recent immunization for pneumococcal pneumonia 02/20/2020 Last Documented On 0 2:29PM ; [facility], [facility] heart surgery,previous fx,ir regular heartbeat,PFO Closure, suction dialation and curettage ~esophogeal spasms ~Bilateral Carpal Tunnel Release ~ ~Breast ~Endometrial Ablation ~DNC ~Left Rib Resection ~Colonoscopy ~RED 12/18/2018 Last Documented On 1 2:57PM ; [facility], [facility] A previous fracture left and right wrist 12/18/2018 Last Documented On 1 2:57PM ; [facility] History of asthma 12/18/2018 Last Documented On 1 2:57PM ; [facility] Thyroid disease hypothyroid 12/18/2018 Last Documented On 1 2:57PM ; [facility] A recent injection 12/18/2018 Last Documented On 1 2:57PM ; [facility] Gallbladder disease 12/25/2017 Last Documented On 9 9:32AM ; [facility] History of depression 12/25/2017 Last Documented On 9 9:32AM ; [facility], [facility] Family History Includes: Family History in patient's chart Description Last Updated Family history of cancer 07/30/2020 Last Documented On 1 7:48AM ; [facility], [facility] father: heart attack ~stroke /seizures: mother and grand mother on both sides of family 12/18/2018 Last Documented On 1 2:57PM ; [facility], [facility] Family history of heart disease 12/19/19 19 Last Documented On 1 2:57PM ; [facility] Family history of hypertension grandmoth er 12/18/2018 Last Documented On 1 2:57PM ; [facility], [facility] Family history of osteoporosis grandmoth er 12/18/2018 Last Documented On 1 2:57PM ; [facility] Stroke/seizures 12/25/2017 Last Documented On 9 9:32AM ; [facility], [facility] Review of Systems Review of Systems not supported for this document type No Review of Systems Recorded Mental Status Description No anxiety Functional Status No Functional Status Recorded Physical Exam Physical Exam not supported for this document type No Physical Exam Recorded Immunizations Includes: Immunizations in patient's chart Vaccine Dose # Date Site Reaction(s) Status Source Influenza 1 02/03/2020 Complete (Reported) Patient Last Documented On 0 11:25AM ; [facility], [facility] PCV (Pneumovax 23) 1 08/17/2020 Complete (Refused - Patient objection) [facility], [facility] Last Documented On 1 1:29PM ; [facility], [facility] Td 1 08/17/2020 Complete (Refused - Patient objection) [facility], [facility] Last Documented On 1 1:29PM ; [facility], [facility] Allergies Includes: Active, inactive, and resolved Allergies Substance Type Reaction Onset Date Resolved Date Statu s Vibramycin Allergy 12/25/2017 Active Last Documented On 2 2:01PM ; [facility], [facility] steroids Allergy 12/25/2017 Active Last Documented On 2 2:01PM ; [facility], [facility] Propofol Allergy 12/18/2018 Active Last Documented On 2 2:01PM ; [facility], [facility] Lyrica Allergy 12/25/2017 Active Last Documented On 2 2:01PM ; [facility] Cymbalta Allergy 12/25/2017 Active Last Documented On 2 2:01PM ; [facility], [facility] Augmentin Allergy 12/25/2017 Active Last Documented On 2 2:01PM ; [facility], [facility] anti-inflammatories Allergy 12/25/2017 Active Last Documented On 2 2:01PM ; [facility], [facility] Ambien Allergy 12/25/2017 Active Last Documented On 2 2:01PM ; [facility] Insurance Includes: Active Insurance Policies Plan Name Member ID Group # Subscriber Relationship Effect daniela Dates 1 - [facility] [id number] CASPER CUNNINGHAM Self 9 - Unknown 2 - [facility] Plan [id number] CASPER CUNNINGHAM Self 0 - Unknown Clinical Notes Includes: Signed Clinical Notes starting from 03/17/2022 No Clinical Notes Recorded
--- OUTSIDE RECORDS SUMMARY | 2024-02-01 11:54 | XMS_ITS | Clinical Summary ---
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 Role Phone CHAIM OLIVEIRA Unavailable [phone] Ezequiel FULLER, Coy Unavailable [phone] Xiomy Aviles MD Primary Care Provider [phone] Reason for Visit and Chief Complaint The Chief Complaint is: right hip pain Problems Includes: Problems addressed during this encounter and other active Problems Current Visit Onset Date Resolved Date Provider Conditio n Status Joint Pain in the Right Hip 12/28/2021 Coy Nieves MD Active Last Documented On 2 2:02PM ; [facility] Past Visits Onset Date Resolved Date Provider Condition Status History of Joint Pain, Localized in the Left Shoulder 08/17/2020 Victor Manuel Kyle MD Active Last Documented On 1 1:28PM ; [facility] Joint Pain in the Left Hip 12/29/2017 Coy cisse MD Active Last Documented On 8 9:58AM ; [facility] Plan of Treatment Nonsteroidal anti-inflammatories with famotidine for stomach protection as patient has history of ulcer in the past is recommended also Orth O laser treatment for healing of the inflamed flexor tendon is recommended follow-up visit in 4-6 weeks as well to stretching program - Last Documented On 01/03/2022 6:38PM ; [facility] Pending Tests Order Diagnosis Results Due Ordering P rovider Radiology - MRI MRI Hip 01/08/18 Coy cisse MD Last Documented On 9 9:32AM ; [facility] Assessments Includes: Assessments from this encounter Findings Persistent hip flexor tendinitis at the ASIS originright side - Last Documented On 01/03/2022 6:38PM ; [facility] Medical Equipment - Implanted Devices Includes: Current Devices No Medical Equipment Recorded Medications Includes: Medications discussed during this encounter and other current Medications New / Renewed during this visit Coy Nieves MD on 12/28/2021 Ibuprofen-Famotidine 800-26. 6 MG Oral Tablet Provider: Coy Nieves MD 30 day supply: 60 tablet, 6 refills Diagnosis: twice a day Pharmacy: [facility] - [address] [place] [address] [address] [place], [address] - Last Documented On 2 2:40PM By Coy Nieves ; [facility] Current Medications (continue as prescribed) Wellbutrin XL 150 MG Oral Ta blet Extended Release 24 Hour 12/15/2021 Provider: CHAIM OLIVEIRA Diagnosis: Last Documented On 2 1:17PM By Carol Kiran ; [facility] Cyanocobalamin 1000 MCG/ML Injection Solution 12/16/19 Provider: Xiomy Aviles MD Diagnosis: Last Documented On 2 1:17PM By Carol Kiran ; [facility] Synthroid 50 MCG Oral Tablet 12/15/2021 Provider: CHAIM OLIVEIRA Diagnosis: Last Documented On 2 1:17PM By Carol Kiran ; [facility] tiZANidine HCl 4 MG Oral Tablet 11/17/2021 Provider: Xiomy Aviles MD Diagnosis: Last Documented On 2 1:17PM By Carol Kiran ; [facility] Topamax 100 MG Oral Tablet 11/15/2021 Provider: Kiet OLIVEIRA Diagnosis: Last Documented On 2 1:17PM By Carol Kiran ; [facility] SUMAtriptan Succinate 100 MG Oral Tablet 11/15/2021 Provider: CHAIM OLIVEIRA Diagnosis: Last Documented On 2 1:17PM By Carol Kiran ; [facility] Eszopiclone 1 MG Oral Tablet 11/12/2021 Provider: Xiomy Aviles MD Diagnosis: Last Documented On 2 1:17PM By Carol Kiran ; [facility] ALPRAZolam 0.5 MG Oral Tablet 11/12/2021 Provider: Xiomy Aviles MD Diagnosis: Last Documented On 2 1:17PM By Carol Kiran ; [facility] Lidocaine 5% External Patch 11/12/2021 Provider: Xiomy Aviles MD Diagnosis: Last Documented On 2 1:17PM By Carol Kiran ; [facility], [facility] Nurtec 75 MG Oral Tablet Disintegrating 10/18/2021 P eduard: ROSA SOLIMAN MD Diagnosis: Last Documented On 2 1:18PM By Carol Kiran ; [facility] Past Medications on file Ibuprofen 800 MG Oral Tablet 12/29/2021 - 01/28/2022 Miley chapa: Coy Nieves MD Diagnosis: three times a day Last Documented On 2 4:08PM By Coy Nieves ; [facility], [facility] Duexis 800-26.6 MG Oral Tablet 12/01/2021 - 03/01/2022 Provider: Sahil siddiqui PA-C Diagnosis: three times a day take 1 tablet three times viky y Last Documented On 2 3:39PM By Mariam Henriquez ; [facility], [facility] Duexis 800-26.6 MG Oral Tablet 08/17/2021 - 04/14/2022 Provider: Coy Nieves MD Diagnosis: 1 tablet three times daily Last Documented On 2 11:26AM By Coy Nieves ; [facility], [facility] Duexis 800-26.6 MG Oral Tablet 04/19/2021 - 07/18/2021 Provider: Coy Nieves MD Diagnosis: three times a day take 1 tablet three times viky y Last Documented On 2 4:10PM By Linette Joy ; [facility] traMADol HCl 50 MG Oral Tablet 11/30/2020 - 01/09/2021 Provider: Coy Nieves MD Diagnosis: Take 1 tablet every 8 hrs prn pain Last Documented On 1 9:39AM By Coy Nieves ; [facility], [facility] Duexis 800-26.6 MG Oral Tablet 07/30/2020 - 10/28/2020 Provider: Coy Nieves MD Diagnosis: three times a day take 1 tablet three times viky y Last Documented On 1 11:47AM By Coy [facility] Lidoderm 5% External Patch 07/30/2020 - 12/27/2020 Pro vider: Coy Nieves MD Diagnosis: apply as directed one one time a day Last Documented On 1 11:49AM By Coy Nieves ; [facility] traMADol HCl 50 MG Oral Tablet 07/30/2020 - 09/08/2020 Provider: Coy Nieves MD Diagnosis: Take 1 tablet every 8 hrs prn pain Last Documented On 1 11:52AM By Coy [facility] traMADol HCl 50 MG Oral Tablet 05/07/2020 - 05/27/2020 Provider: Coy Nieves MD Diagnosis: Take 1 tablet every 8 hrs prn pain Last Documented On 1 5:08PM By Coy [facility] traMADol HCl 50 MG Oral Tablet 02/25/2020 - 03/16/2020 Provider: Coy Nieves MD Diagnosis: Take 1 tablet every 8 hrs prn pain Last Documented On 0 4:10PM By Mami [facility] traMADol HCl 50 MG Oral Tablet 01/09/2020 - 01/29/2020 Provider: Coy Nieves MD Diagnosis: Take 1 tablet every 8 hrs prn pain Last Documented On 0 1:13PM By Mami Norton ; [facility] Cyclobenzaprine HCl 10 MG Or al Tablet 11/20/2019 - 11/25/2019 Provider: Coy Nieves MD Diagnosis: twice a day Last Documented On 0 12:06PM By Mami Norton ; [facility] traMADol HCl 50 MG Oral Tablet 11/18/2019 - 12/08/2019 Provider: Coy Nieves MD Diagnosis: three times a day Last Documented On 0 1:38PM By Mami Norton ; [facility] Duexis 800-26.6 MG Oral Tablet 09/17/2019 - 12/16/2019 Provider: Coy Nieves MD Diagnosis: three times a day take 1 tablet three times viky y Last Documented On 0 11:33AM By Nannette Thomas ; [facility] traMADol HCl 50 MG Oral Tablet 09/17/2019 - 10/07/2019 Provider: Coy Nieves MD Diagnosis: three times a day Last Documented On 0 11:24AM By Nannette Thomas ; [facility] Ultram 50 MG Oral Tablet 03/15/2019 - 03/25/2019 Provi que: Coy Nieves MD Diagnosis: 1-2 po q 4-6h 1-2 tablets by mouth every 4-6hrs for post op pain Last Documented On 9 12:50PM By Jocelynn Pardo ; [facility] Medications Administered Includes: Administered Medications from this encounter No Administered Medications Recorded Vital Signs Includes: Vital Signs from this encounter Vital Name 12/28/2021 02:07P Blood Pressure Sitting (mmHg) 121/81 Pulse Rate-Sitting (bpm) 73 Height (in) 70 Weight (lb) 160 Body Mass Index (kg/m2) 23.0 Body Surface Area (m2) 1.9 Note: ba Last Documented: On 12/28/2021 2:07PM ; [facility] Results Includes: Results discussed during this encounter No Results Recorded For Specified Dates History of Present Illness Includes: History of Present Illness from this encounter BLAIR CUNNINGHAM is a 51 year old female. - Allergy list reviewed - Problem list reviewed - Medication list reviewed Patient presented with recurrent right hip pain today's pain is really focused over the flexor attachment to the anterior superior iliac spine there is never groin pain today she did have an MRI for follow-up MRA for follow-up of her previous labral repair of the right hip Social History Description Last Updated Tobacco non-user 12/01/2021 Last Documented On 2 2:01PM ; [facility] Exercising regularly 07/30/2020 Last Documented On 2 2:01PM ; [facility] Non-smoker 02/20/2020 Last Documented On 2 2:01PM ; [facility] No recent change in diet 02/20/2020 Last Documented On 2 2:01PM ; [facility], [facility] Not a current smoker. 02/20/2020 Last Documented On 2 2:01PM ; [facility], [facility] Not using drugs 02/20/2020 Last Documented On 2 2:01PM ; [facility] Alcohol use seldom 12/18/2018 Last Documented On 2 2:01PM ; [facility] Caffeine use seldom 12/18/2018 Last Documented On 2 2:01PM ; [facility], [facility] Not a current smoker 12/25/2017 Last Documented On 2 2:01PM ; [facility], [facility] No tobacco use 12/25/2017 Last Documented On 2 2:01PM ; [facility], [facility] Smoking status : Former smoker 8 Last Documented On 2 2:01PM ; [facility], [facility] Procedures and Surgical History Includes: Procedures from this encounter Procedures Code Diagnosis Performing Provider Service L ocation Service Date use of tobacco assessment performed 1000F Last Documented On 2 2:01PM ; [facility], [facility] Surgical History Last Updated History of heart surgery 12/25/2017 Last Documented On 2 2:01PM ; [facility], [facility] Medical History Includes: Medical History addressed during this encounter Description Last Updated Asthma 07/30/2020 Last Documented On 2 2:01PM ; [facility], [facility] Irregular Heartbeat 07/30/2020 Last Documented On 2 2:01PM ; [facility], [facility] Thyroid Disease 07/30/2020 Last Documented On 2 2:01PM ; [facility], [facility] Heart surgery 07/30/2020 Last Documented On 2 2:01PM ; [facility], [facility] History of Gallbladder 07/30/2020 Last Documented On 2 2:01PM ; [facility], [facility] Past Surgical History: Thori ac outlet (rib resection), Bilateral thumbs, Bilateral carpal tunnel, Right hip, breast biopsy x3, tubal, , D & C X2 07/30/2020 Last Documented On 2 2:01PM ; [facility], [facility] Previous Fractures 07/30/2020 Last Documented On 2 2:01PM ; [facility], [facility] Recent immunization for flu 02/02/2020 1 04/04/2019 07/30/2020 Last Documented On 2 2:01PM ; [facility], [facility] No recent immunization for pneumococcal pneumonia 02/20/2020 Last Documented On 2 2:01PM ; [facility], [facility] heart surgery,previous fx,ir regular heartbeat,PFO Closure, suction dialation and curettage ~esophogeal spasms ~Bilateral Carpal Tunnel Release ~ ~Breast ~Endometrial Ablation ~DNC ~Left Rib Resection ~Colonoscopy ~RED 12/18/2018 Last Documented On 2 2:01PM ; [facility], [facility] A previous fracture left and right wrist 12/18/2018 Last Documented On 2 2:01PM ; [facility], [facility] History of asthma 12/18/2018 Last Documented On 2 2:01PM ; [facility], [facility] Thyroid disease hypothyroid 12/18/2018 Last Documented On 2 2:01PM ; [facility] A recent injection 12/18/2018 Last Documented On 2 2:01PM ; [facility], [facility] Gallbladder disease 12/25/2017 Last Documented On 2 2:01PM ; [facility] History of depression 12/25/2017 Last Documented On 2 2:01PM ; [facility], [facility] Family History Includes: Family History addressed during this encounter Description Last Updated Family history of cancer 07/30/2020 Last Documented On 2 2:01PM ; [facility], [facility] father: heart attack ~stroke /seizures: mother and grand mother on both sides of family 12/18/2018 Last Documented On 2 2:01PM ; [facility], [facility] Family history of heart disease 12/19/19 19 Last Documented On 2 2:01PM ; [facility], [facility] Family history of hypertension grandmoth er 12/18/2018 Last Documented On 2 2:01PM ; [facility] Family history of osteoporosis [facility] 12/18/2018 Last Documented On 2 2:01PM ; [facility] Stroke/seizures 12/25/2017 Last Documented On 2 2:01PM ; [facility] Review of Systems Includes: Review of Systems from this encounter Systemic: Not feeling tired. Recent weight loss. No recent weight gain. No edema. Head: Headache migraines. No sinus pain. Eyes: No vision problems Glasses/contacts, no vision problems, and no glaucomatous visual field defect. No Cataracts. Glasses/Contacts. No Glaucoma. Otolaryngeal: No hearing loss and no tinnitus. No nasal symptoms. Cardiovascular: No chest pain or discomfort. Palpitations MVP. No Hypertension and no High Cholesterol. Pulmonary: No daytime asthma symptoms, no cough, and no chronic cough. Wheezing bronchitis often esophogeal spasms. Gastrointestinal: No heartburn. Heartburn espohegeal spasms. No abdominal pain. No Indigestion, no Acid Reflux, no Peptic Ulcer, no GI Stomach Bleed, and no Ulcers. Endocrine: No hot flashes. Muscle weakness. No Diabetes. Hypothyroid. No Hyperthyroid. Hematologic: No easy bleeding. A tendency for easy bruising. No Anemia. Musculoskeletal: No Arthritis. Lower back pain. No soft tissue swelling. Pain localized to one or more joints. Neurological: No dizziness, no convulsions, and no numbness. Psychological: No anxiety and no emotional lability. Depression. No insomnia. Not crying for no reason. Skin: No dry skin. No Ulcers, no Scars, no rash, and no ulcers. Allergic and Immunologic: No complaint of seasonal allergic reaction. Mental Status Includes: Mental Status from this encounter Description No anxiety Functional Status Includes: Functional Status from this encounter No Functional Status Recorded Physical Exam Includes: Physical Exam from this encounter Allergies Includes: Active Allergies Substance Type Reaction Onset Date Resolved Date Statu s Vibramycin Allergy 12/25/2017 Active Last Documented On 2 2:01PM ; [facility] steroids Allergy 12/25/2017 Active Last Documented On 2 2:01PM ; [facility] Propofol Allergy 12/18/2018 Active Last Documented On 2 2:01PM ; [facility] Lyrica Allergy 12/25/2017 Active Last Documented On 2 2:01PM ; [facility] Cymbalta Allergy 12/25/2017 Active Last Documented On 2 2:01PM ; [facility] Augmentin Allergy 12/25/2017 Active Last Documented On 2 2:01PM ; [facility] anti-inflammatories Allergy 12/25/2017 Active Last Documented On 2 2:01PM ; [facility] Ambien Allergy 12/25/2017 Active Last Documented On 2 2:01PM ; [facility] Encounters Encounter Provider Location Date Check-In Time Check- Out Time Diagnosis Follow Up Coy Nieves MD [facility] 1:55PM 2:38PM Insurance Includes: Active Insurance Policies Plan Name Member ID Group # Subscriber Relationship Effect daniela Dates 1 - [facility] [id number] CASPER CUNNINGHAM Self 9 - Unknown 2 - [facility] Plan [id number] CASPER CUNNINGHAM Self 0 - Unknown Clinical Notes Includes: Clinical Notes from this encounter No Clinical Notes Recorded
--- OUTSIDE RECORDS SUMMARY | 2024-02-01 11:55 | XMS_ITS | Clinical Summary ---
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 Role Phone CHAIM OLIVEIRA Unavailable [phone] Ezequiel FULLER, Coy Unavailable [phone] Xiomy Aviles MD Primary Care Provider [phone] Reason for Visit and Chief Complaint The Chief Complaint is: right hip pain Problems Includes: Problems addressed during this encounter and other active Problems All Visits Onset Date Resolved Date Provider Condition S tatus Joint Pain in the Right Hip 12/28/2021 Coy Nieves MD Active Last Documented On 2 2:02PM ; [facility], [facility] History of Joint Pain, Local ized in the Left Shoulder 08/17/2020 Victor Manuel Kyle MD Active Last Documented On 1 1:28PM ; [facility], [facility] Joint Pain in the Left Hip 12/29/2017 Coy cisse MD Active Last Documented On 8 9:58AM ; [facility], [facility] Plan of Treatment No Plan of Treatment Recorded Assessments Includes: Assessments from this encounter No Assessments Recorded Medical Equipment - Implanted Devices Includes: Current Devices No Medical Equipment Recorded Medications Includes: Medications discussed during this encounter and other current Medications Discontinued / Stopped on this date ROSA SOLIMNA MD on 11/15/2021 Qulipta 60 MG Oral Tablet Provider: ROXANN SOLIMAN MD Diagnosis: Last Documented On 2 1:28PM By Carol Kiran ; [facility], [facility] Eszopiclone 1 MG Oral Tablet Provider: Xiomy Aviles MD Diagnosis: Last Documented On 2 1:29PM By Carol Kiran ; [facility], [facility] Famotidine 20 MG Oral Tablet Provider: Xiomy Aviles MD Diagnosis: Last Documented On 2 1:30PM By Carol Kiran ; [facility], [facility] Isosorbide Dinitrate 10 MG Oral Tablet Pr ovider: CHAIM OLIVEIRA Diagnosis: Last Documented On 2 1:20PM By Carol Kiran ; [facility] Vitamin C 1000 MG Oral Tablet Provide r: Diagnosis: Last Documented On 2 1:20PM By Carol Kiran ; [facility] Calcium 150 MG Oral Tablet Provider: Diagnosis: Last Documented On 2 1:20PM By Carol Kiran ; [facility] Daily Multiple Oral Tablet Provider: Diagnosis: Last Documented On 2 1:20PM By Carol Kiran ; [facility] tiZANidine HCl 4 MG Oral Capsule Provider : Diagnosis: Last Documented On 2 1:20PM By Carol Kiran ; [facility], [facility] Albuterol Sulfate (2.5 MG/3M L) 0.083% Inhalation Nebulization solution Provider: Diagnosis: Last Documented On 2 1:20PM By Carol Kiran ; [facility], [facility] Synthroid 50 MCG Oral Tablet Provider: CHAIM OLIVEIRA Diagnosis: Last Documented On 2 1:20PM By Carol Kiran ; [facility] Imitrex 50MG Oral Tablet Provider: Diagnosis: Last Documented On 2 1:19PM By Carol Kiran ; [facility] Vitamin B-12 1000MCG Oral Tablet Prov ider: Diagnosis: Last Documented On 2 1:19PM By Carol Kiran ; [facility] Topamax 200MG Oral Tablet Provider: Diagnosis: Last Documented On 2 1:19PM By Carol Kiran ; [facility] Wellbutrin SR 150MG Oral Tablet Extended Release 12 Ho ur Provider: Diagnosis: Last Documented On 2 1:19PM By Carol Kiran ; [facility] PROzac 10MG Oral Capsule Provider: Diagnosis: Last Documented On 2 1:19PM By Carol Kiran ; [facility] Furosemide 20MG Oral Tablet Provider: Diagnosis: Last Documented On 2 1:19PM By Carol Kiran ; [facility], [facility] Current Medications (continue as prescribed) Wellbutrin XL 150 MG Oral Ta blet Extended Release 24 Hour 12/15/2021 Provider: CHAIM OLIVEIRA Diagnosis: Last Documented On 2 1:17PM By Carol Kiran ; [facility], [facility] Cyanocobalamin 1000 MCG/ML Injection Solution 12/16/19 Provider: Xiomy Aviles MD Diagnosis: Last Documented On 2 1:17PM By Carol Kiran ; [facility], [facility] Synthroid 50 MCG Oral Tablet 12/15/2021 Provider: CHAIM OLIVEIRA Diagnosis: Last Documented On 2 1:17PM By Carol Kiran ; [facility] tiZANidine HCl 4 MG Oral Tablet 11/17/2021 Provider: Xiomy Aviles MD Diagnosis: Last Documented On 2 1:17PM By Carol Kiran ; [facility], [facility] Topamax 100 MG Oral Tablet 11/15/2021 Provider: Kiet OLIVEIRA Diagnosis: Last Documented On 2 1:17PM By Carol Kiran ; [facility], [facility] SUMAtriptan Succinate 100 MG Oral Tablet 11/15/2021 Provider: CHAIM OLIVEIRA Diagnosis: Last Documented On 2 1:17PM By Carol Kiran ; [facility], [facility] Eszopiclone 1 MG Oral Tablet 11/12/2021 Provider: Xiomy Aviles MD Diagnosis: Last Documented On 2 1:17PM By Carol Kiran ; [facility], [facility] ALPRAZolam 0.5 MG Oral Tablet 11/12/2021 Provider: Xiomy Aviles MD Diagnosis: Last Documented On 2 1:17PM By Carol Kiran ; [facility], [facility] Lidocaine 5% External Patch 11/12/2021 Provider: Xiomy Aviles MD Diagnosis: Last Documented On 2 1:17PM By Carol Kiran ; [facility], [facility] Nurtec 75 MG Oral Tablet Disintegrating 10/18/2021 Miley chapa: ROSA SOLIMAN MD Diagnosis: Last Documented On 2 1:18PM By Carol Kiran ; [facility], [facility] Past Medications on file Ibuprofen 800 MG Oral Tablet 12/29/2021 - 01/28/2022 Miley chapa: Coy Nieves MD Diagnosis: three times a day Last Documented On 2 4:08PM By Coy Nieves ; [facility], [facility] Ibuprofen-Famotidine 800-26. 6 MG Oral Tablet 12/28/2021 - 07/26/2022 Provider: Coy Nieves MD Diagnosis: twice a day Last Documented On 2 2:40PM By Coy Nieves ; [facility], [facility] Duexis 800-26.6 MG Oral Tablet 12/01/2021 - 03/01/2022 Provider: Sahil siddiqui PA-C Diagnosis: three times a day take 1 tablet three times viky y Last Documented On 2 3:39PM By Mariam Henriquez ; [facility] Duexis 800-26.6 MG Oral Tablet 08/17/2021 - 04/14/2022 Provider: Coy Nieves MD Diagnosis: 1 tablet three times daily Last Documented On 2 11:26AM By Coy Nieves ; [facility] Duexis 800-26.6 MG Oral Tablet 04/19/2021 - 07/18/2021 Provider: Coy Nieves MD Diagnosis: three times a day take 1 tablet three times viky y Last Documented On 2 4:10PM By Linette Joy ; [facility] traMADol HCl 50 MG Oral Tablet 11/30/2020 - 01/09/2021 Provider: Coy Nieves MD Diagnosis: Take 1 tablet every 8 hrs prn pain Last Documented On 1 9:39AM By Coy Nieves ; [facility], [facility] Duexis 800-26.6 MG Oral Tablet 07/30/2020 - 10/28/2020 Provider: Coy Nieves MD Diagnosis: three times a day take 1 tablet three times viky y Last Documented On 1 11:47AM By Coy Nieves ; [facility], [facility] Lidoderm 5% External Patch 07/30/2020 - 12/27/2020 Pro vider: Coy Nieves MD Diagnosis: apply as directed one one time a day Last Documented On 1 11:49AM By Coy Nieves ; [facility] traMADol HCl 50 MG Oral Tablet 07/30/2020 - 09/08/2020 Provider: Coy Nieves MD Diagnosis: Take 1 tablet every 8 hrs prn pain Last Documented On 1 11:52AM By Coy Nieves ; [facility] traMADol HCl 50 MG Oral Tablet 05/07/2020 - 05/27/2020 Provider: Coy Nieves MD Diagnosis: Take 1 tablet every 8 hrs prn pain Last Documented On 1 5:08PM By Coy Nieves ; [facility] traMADol HCl 50 MG Oral Tablet 02/25/2020 - 03/16/2020 Provider: Coy Nieves MD Diagnosis: Take 1 tablet every 8 hrs prn pain Last Documented On 0 4:10PM By Mami Norton ; [facility] traMADol HCl 50 MG Oral Tablet 01/09/2020 - 01/29/2020 Provider: Coy Nieves MD Diagnosis: Take 1 tablet every 8 hrs prn pain Last Documented On 0 1:13PM By Mami Norton ; [facility] Cyclobenzaprine HCl 10 MG Or al Tablet 11/20/2019 - 11/25/2019 Provider: Coy Nieves MD Diagnosis: twice a day Last Documented On 0 12:06PM By Mami Fontenot [facility] traMADol HCl 50 MG Oral Tablet 11/18/2019 - 12/08/2019 Provider: Coy Nieves MD Diagnosis: three times a day Last Documented On 0 1:38PM By Mami Norton ; [facility] Duexis 800-26.6 MG Oral Tablet 09/17/2019 - 12/16/2019 Provider: Coy Nieves MD Diagnosis: three times a day take 1 tablet three times viky y Last Documented On 0 11:33AM By Nannette Thomas ; [facility] traMADol HCl 50 MG Oral Tablet 09/17/2019 - 10/07/2019 Provider: Coy Nieves MD Diagnosis: three times a day Last Documented On 0 11:24AM By Nannette Thomas ; [facility], [facility] Ultram 50 MG Oral Tablet 03/15/2019 - 03/25/2019 Provi que: Coy Nieves MD Diagnosis: 1-2 po q 4-6h 1-2 tablets by mouth every 4-6hrs for post op pain Last Documented On 9 12:50PM By Jocelynn Pardo ; [facility] Medications Administered Includes: Administered Medications from this encounter No Administered Medications Recorded Vital Signs Includes: Vital Signs from this encounter Vital Name 12/15/2021 01:22P Blood Pressure Sitting (mmHg) 138/86 Pulse Rate-Sitting (bpm) 78 Height (in) 70 Weight (lb) 164 Body Mass Index (kg/m2) 23.5 Body Surface Area (m2) 1.9 Note: aek Last Documented: On 12/15/2021 1:27PM ; [facility], [facility] Results Includes: Results discussed during this encounter No Results Recorded For Specified Dates History of Present Illness Includes: History of Present Illness from this encounter BLAIR CUNNINGHAM is a 51 year old female. - Allergy list reviewed - Problem list reviewed - Medication reconciliation performed - Medication list reviewed - Medication list reviewed with patient - Patient pain level from 1-10: 7 Better: Heat, ice, elevating legs to take pressure off back. Worse: Sitting, walking or standing for long periods of time ? History of Injections ? No previous treatment. 51 year old female in today for left hip pain. Patient had a injection at the last visit in her hip and is still having pain in the hip. She has a slight limp on the left when walking. She states that the injection helped for 4-5 days and the pain came back. She states that the injection helped the pain go from a 10 to a 5-6. She has a hard time with doing any activity to due to the pain and discomfort. She has pain that goes from her hip down from her legs. The pain caused her to loose sleep and not able to do things in her day to day life. Review of systems: All systems within normal limits with exception of left hip pain Physical Exam: CONSTITUTIONAL: Well developed, well groomed, well nourished patient in no acute distress who appears stated age, height and weight. PSYCHIATRIC: The patient is alert and oriented to person, place, date and situation. Mood and affect are normal for current situation. NEUROLOGICAL: Sensation normal bilateral upper and lower extremities. LYMPHATIC: No pitting edema noted in the lower extremities. SKIN: No lesions noted on upper or lower extremities. Skin is dry, warm and with normal turgor. VASCULAR: No swelling in upper or lower extremities other than described below in extremity exam. Dorsalis Pedis Pulses normal in lower extremities. GAIT AND STATION: Antalgic gate on the left. 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 We will see her back once the MRI has been completed. In the mean time she should continue using ice and ibuprofen as needed. Social History Description Last Updated Tobacco non-user 12/01/2021 Last Documented On 2 1:20PM ; [facility], [facility] Exercising regularly 07/30/2020 Last Documented On 2 1:20PM ; [facility], [facility] Non-smoker 02/20/2020 Last Documented On 2 1:20PM ; [facility], [facility] No recent change in diet 02/20/2020 Last Documented On 2 1:20PM ; [facility], [facility] Not a current smoker. 02/20/2020 Last Documented On 2 1:20PM ; [facility], [facility] Not using drugs 02/20/2020 Last Documented On 2 1:20PM ; [facility] Alcohol use seldom 12/18/2018 Last Documented On 2 1:20PM ; [facility] Caffeine use seldom 12/18/2018 Last Documented On 2 1:20PM ; [facility], [facility] Not a current smoker 12/25/2017 Last Documented On 2 1:20PM ; [facility] No tobacco use 12/25/2017 Last Documented On 2 1:20PM ; [facility], [facility] Smoking status : Former smoker 8 Last Documented On 2 1:20PM ; [facility], [facility] Procedures and Surgical History Includes: Procedures from this encounter Procedures Code Diagnosis Performing Provider Service L ocation Service Date use of tobacco assessment performed 1000F Last Documented On 2 1:20PM ; [facility] an X-ray was performed 13951 Last Documented On 2 1:49PM ; [facility] an MRI was performed 97385 Last Documented On 2 1:49PM ; [facility] History of Blood Tests Last Documented On 2 1:49PM ; [facility] Surgical History Last Updated History of heart surgery 12/25/2017 Last Documented On 2 1:20PM ; [facility] Medical History Includes: Medical History addressed during this encounter Description Last Updated Asthma 07/30/2020 Last Documented On 2 1:20PM ; [facility] Irregular Heartbeat 07/30/2020 Last Documented On 2 1:20PM ; [facility] Thyroid Disease 07/30/2020 Last Documented On 2 1:20PM ; [facility] Heart surgery 07/30/2020 Last Documented On 2 1:20PM ; [facility] History of Gallbladder 07/30/2020 Last Documented On 2 1:20PM ; [facility] Past Surgical History: Thori ac outlet (rib resection), Bilateral thumbs, Bilateral carpal tunnel, Right hip, breast biopsy x3, tubal, , D & C X2 07/30/2020 Last Documented On 2 1:20PM ; [facility] Previous Fractures 07/30/2020 Last Documented On 2 1:20PM ; [facility] Recent immunization for flu 02/02/2020 1 04/04/2019 07/30/2020 Last Documented On 2 1:20PM ; [facility] No recent immunization for pneumococcal pneumonia 02/20/2020 Last Documented On 2 1:20PM ; [facility] heart surgery,previous fx,ir regular heartbeat,PFO Closure, suction dialation and curettage ~esophogeal spasms ~Bilateral Carpal Tunnel Release ~ ~Breast ~Endometrial Ablation ~DNC ~Left Rib Resection ~Colonoscopy ~RED 12/18/2018 Last Documented On 2 1:20PM ; [facility], [facility] A previous fracture left and right wrist 12/18/2018 Last Documented On 2 1:20PM ; [facility] History of asthma 12/18/2018 Last Documented On 2 1:20PM ; [facility], [facility] Thyroid disease hypothyroid 12/18/2018 Last Documented On 2 1:20PM ; [facility], [facility] A recent injection 12/18/2018 Last Documented On 2 1:20PM ; [facility], [facility] Gallbladder disease 12/25/2017 Last Documented On 2 1:20PM ; [facility] History of depression 12/25/2017 Last Documented On 2 1:20PM ; [facility] Family History Includes: Family History addressed during this encounter Description Last Updated Family history of cancer 07/30/2020 Last Documented On 2 1:20PM ; [facility], [facility] father: heart attack ~stroke /seizures: mother and grand mother on both sides of family 12/18/2018 Last Documented On 2 1:20PM ; [facility], [facility] Family history of heart disease 12/19/19 19 Last Documented On 2 1:20PM ; [facility], [facility] Family history of hypertension grandmoth er 12/18/2018 Last Documented On 2 1:20PM ; [facility] Family history of osteoporosis grandmoth er 12/18/2018 Last Documented On 2 1:20PM ; [facility] Stroke/seizures 12/25/2017 Last Documented On 2 1:20PM ; [facility] Review of Systems Includes: Review of Systems [...] Active Last Documented On 2 2:01PM ; [facility], [facility] steroids Allergy 12/25/2017 Active Last Documented On 2 2:01PM ; [facility] Propofol Allergy 12/18/2018 Active Last Documented On 2 2:01PM ; [facility] Lyrica Allergy 12/25/2017 Active Last Documented On 2 2:01PM ; [facility] Cymbalta Allergy 12/25/2017 Active Last Documented On 2 2:01PM ; [facility] Augmentin Allergy 12/25/2017 Active Last Documented On 2 2:01PM ; [facility], [facility] anti-inflammatories Allergy 12/25/2017 Active Last Documented On 2 2:01PM ; [facility] Ambien Allergy 12/25/2017 Active Last Documented On 2 2:01PM ; [facility] Encounters Encounter Provider Location Date Check-In Time Check-Out Time Diagnosis Follow Up Sahil Lemus PA-C [facility] 2 1:15PM 1:43PM Insurance Includes: Active Insurance Policies Plan Name Member ID Group # Subscriber Relationship Effect daniela Dates 1 - [facility] [id number] CASPER CUNNINGHAM Self 9 - Unknown 2 - [facility] [id number] CASPER CUNNINGHAM Self 0 - Unknown Clinical Notes Includes: Clinical Notes from this encounter No Clinical Notes Recorded
--- OUTSIDE RECORDS SUMMARY | 2024-02-01 11:55 | XMS_ITS | Clinical Summary ---
Author Organization [facility] Address [address] [place] [address] Phone Care Team Providers Care Controller Operations And Hr Manager Name Role Phone CHAIM OLIVEIRA Unavailable [phone] Ezequiel FULLER, Coy Unavailable [phone] Xiomy Aviles MD Primary Care Provider [phone] Reason for Visit and Chief Complaint The Chief Complaint is: right hip pain Problems Includes: Problems addressed during this encounter and other active Problems All Visits Onset Date Resolved Date Provider Condition S tatus Joint Pain in the Right Hip 12/28/2021 Coy Nieves MD Active Last Documented On 2 2:02PM ; [facility] History of Joint Pain, Local ized in the Left Shoulder 08/17/2020 Victor Manuel Kyle MD Active Last Documented On 1 1:28PM ; [facility] Joint Pain in the Left Hip 12/29/2017 Coy cisse MD Active Last Documented On 8 9:58AM ; [facility] Plan of Treatment Patient will continue Duexis on a long-term basis would give her a prescription for that and will recommend she getting blood work at least once a year to check kidney liver or liver battery for maintenance and also follow-up when necessary with us as needed - Last Documented On 08/18/2021 6:06AM ; [facility] Pending Tests Order Diagnosis Results Due Ordering P rovider Radiology - MRI MRI Hip 01/08/18 Coy cisse MD Last Documented On 9 9:32AM ; [facility] Assessments Includes: Assessments from this encounter Findings 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 [address] [place] [address], [id number] - Last Documented On 2 11:26AM By Coy Nieves ; [facility] Current Medications (continue as prescribed) Wellbutrin XL 150 MG Oral Ta blet Extended Release 24 Hour 12/15/2021 Provider: CHAIM OLIVEIRA Diagnosis: Last Documented On 2 1:17PM By Carol Kiran ; [facility] Cyanocobalamin 1000 MCG/ML Injection Solution 12/16/19 Provider: Xiomy Aviles MD Diagnosis: Last Documented On 2 1:17PM By Carol Kiran ; [facility] Synthroid 50 MCG Oral Tablet 12/15/2021 Provider: CHAIM OLIVEIRA Diagnosis: Last Documented On 2 1:17PM By Carol Kiran ; [facility] tiZANidine HCl 4 MG Oral Tablet 11/17/2021 Provider: Xiomy Aviles MD Diagnosis: Last Documented On 2 1:17PM By Carol Kiran ; [facility] Topamax 100 MG Oral Tablet 11/15/2021 Provider: Kiet OLIVEIRA Diagnosis: Last Documented On 2 1:17PM By Carol Kiran ; [facility] SUMAtriptan Succinate 100 MG Oral Tablet 11/15/2021 Provider: CHAIM OLIVEIRA Diagnosis: Last Documented On 2 1:17PM By Carol Kiran ; [facility] Eszopiclone 1 MG Oral Tablet 11/12/2021 Provider: Xiomy Aviles MD Diagnosis: Last Documented On 2 1:17PM By Carol Kiran ; [facility] ALPRAZolam 0.5 MG Oral Tablet 11/12/2021 Provider: Xiomy Aviles MD Diagnosis: Last Documented On 2 1:17PM By Carol Kiran ; [facility], [facility] Lidocaine 5% External Patch 11/12/2021 Provider: Xiomy Aviles MD Diagnosis: Last Documented On 2 1:17PM By Carol Kiran ; [facility], [facility] Nurtec 75 MG Oral Tablet Disintegrating 10/18/2021 Miley chapa: ROSA SOLIMAN MD Diagnosis: Last Documented On 2 1:18PM By Carol Kiarn ; [facility], [facility] Past Medications on file Ibuprofen 800 MG Oral Tablet 12/29/2021 - 01/28/2022 Miley chapa: Coy Nieves MD Diagnosis: three times a day Last Documented On 2 4:08PM By Coy Nieves ; [facility], [facility] Ibuprofen-Famotidine 800-26. 6 MG Oral Tablet 12/28/2021 - 07/26/2022 Provider: Coy Nieves MD Diagnosis: twice a day Last Documented On 2 2:40PM By Coy Nieves ; [facility], [facility] Duexis 800-26.6 MG Oral Tablet 12/01/2021 - 03/01/2022 Provider: Sahil siddiqui PA-C Diagnosis: three times a day take 1 tablet three times viky y Last Documented On 2 3:39PM By Mariam Henriquez ; [facility], [facility] Duexis 800-26.6 MG Oral Tablet 04/19/2021 - 07/18/2021 Provider: Coy Nieves MD Diagnosis: three times a day take 1 tablet three times viky y Last Documented On 2 4:10PM By Linette Joy ; [facility], [facility] traMADol HCl 50 MG Oral Tablet 11/30/2020 - 01/09/2021 Provider: Coy Nieves MD Diagnosis: Take 1 tablet every 8 hrs prn pain Last Documented On 1 9:39AM By Coy Nieves ; [facility], [facility] Duexis 800-26.6 MG Oral Tablet [...] On 1 11:49AM By Coy Nieves ; [facility] traMADol HCl 50 MG Oral Tablet 07/30/2020 - 09/08/2020 Provider: Coy Nieves MD Diagnosis: Take 1 tablet every 8 hrs prn pain Last Documented On 1 11:52AM By Coy Nieves ; [facility] traMADol HCl 50 MG Oral Tablet 05/07/2020 - 05/27/2020 Provider: Coy Nieves MD Diagnosis: Take 1 tablet every 8 hrs prn pain Last Documented On 1 5:08PM By Coy Nieves ; [facility] traMADol HCl 50 MG Oral [...] On 0 1:13PM By Mami Norton ; [facility] Cyclobenzaprine HCl 10 MG Or al Tablet 11/20/2019 - 11/25/2019 Provider: Coy Nieves MD Diagnosis: twice a day Last Documented On 0 12:06PM By Mami Norton ; [facility] traMADol HCl 50 MG Oral Tablet 11/18/2019 - 12/08/2019 Provider: Coy Nieves MD Diagnosis: three times a day Last Documented On 0 1:38PM By Mami Norton ; [facility] Duexis 800-26.6 MG Oral Tablet [...] Vital Signs from this encounter Vital Name 08/17/2021 10:48A Blood Pressure Sitting (mmHg) 124/80 Pulse Rate-Sitting (bpm) 81 Height (in) 70 Weight (lb) 145 Body Mass Index (kg/m2) 20.8 Body Surface Area (m2) 1.8 Note: mg Last Documented: On 08/17/2021 10:49A M ; [facility] Results Includes: Results discussed during this encounter No Results Recorded For Specified Dates History of Present Illness Includes: History of Present Illness from this encounter BLAIR CUNNINGHAM is a 50 year old female. 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 02/20/2020 Last Documented On 2 10:22AM ; [facility] Not using drugs 02/20/2020 Last Documented On 2 10:22AM ; [facility] Alcohol use seldom 12/18/2018 Last Documented On 2 10:22AM ; [facility] Caffeine use seldom 12/18/2018 Last Documented On 2 10:22AM ; [facility] Not a current smoker 12/25/2017 Last Documented On 2 10:22AM ; [facility] No tobacco use 12/25/2017 Last Documented On 2 10:22AM ; [facility] Smoking status : Former smoker 8 Last Documented On 2 10:22AM ; [facility], [facility] Procedures and Surgical History Includes: Procedures from this encounter Procedures Code Diagnosis Performing Provider Service L ocation Service Date use of tobacco assessment performed 1000F Last Documented On 2 10:22AM ; [facility] Surgical History Last Updated History of heart surgery 12/25/2017 Last Documented On 2 10:22AM ; [facility] Medical History Includes: Medical History addressed during this encounter Description Last Updated Asthma 07/30/2020 Last Documented On 2 10:22AM ; [facility] Irregular Heartbeat 07/30/2020 Last Documented On 2 10:22AM ; [facility] Thyroid Disease 07/30/2020 Last Documented On 2 10:22AM ; [facility] Heart surgery 07/30/2020 Last Documented On 2 10:22AM ; [facility] History of Gallbladder 07/30/2020 Last Documented On 2 10:22AM ; [facility], [facility] Past Surgical History: Thori ac outlet (rib resection), Bilateral thumbs, Bilateral carpal tunnel, Right hip, breast biopsy x3, tubal, , D & C X2 07/30/2020 Last Documented On 2 10:22AM ; [facility] Previous Fractures 07/30/2020 Last Documented On 2 10:22AM ; [facility] Recent immunization for flu 02/02/2020 1 04/04/2019 07/30/2020 Last Documented On 2 10:22AM ; [facility], [facility] No recent immunization for pneumococcal pneumonia 02/20/2020 Last Documented On 2 10:22AM ; [facility] heart surgery,previous fx,ir regular heartbeat,PFO Closure, suction dialation and curettage ~esophogeal spasms ~Bilateral Carpal Tunnel Release ~ ~Breast ~Endometrial Ablation ~DNC ~Left Rib Resection ~Colonoscopy ~RED 12/18/2018 Last Documented On 2 10:22AM ; [facility] A previous fracture left and right wrist 12/18/2018 Last Documented On 2 10:22AM ; [facility] History of asthma 12/18/2018 Last Documented On 2 10:22AM ; [facility] Thyroid disease hypothyroid 12/18/2018 Last Documented On 2 10:22AM ; [facility] A recent injection 12/18/2018 Last Documented On 2 10:22AM ; [facility], [facility] Gallbladder disease 12/25/2017 Last Documented On 2 10:22AM ; [facility] History of depression 12/25/2017 Last Documented On 2 10:22AM ; [facility] Family History Includes: Family History addressed during this encounter Description Last Updated Family history of cancer 07/30/2020 Last Documented On 2 10:22AM ; [facility] father: heart attack ~stroke /seizures: mother and grand mother on both sides of family 12/18/2018 Last Documented On 2 10:22AM ; [facility] Family history of heart disease 12/19/19 19 Last Documented On 2 10:22AM ; [facility] Family history of hypertension grandmoth er 12/18/2018 Last Documented On 2 10:22AM ; [facility] Family history of osteoporosis grandm[place] er 12/18/2018 Last Documented On 2 10:22AM ; [facility] Stroke/seizures 12/25/2017 Last Documented On 2 10:22AM ; [facility] Review of Systems Includes: Review [...] Active Last Documented On 2 2:01PM ; [facility] steroids Allergy 12/25/2017 Active Last Documented On 2 2:01PM ; [facility], [facility] Propofol Allergy 12/18/2018 Active Last Documented On 2 2:01PM ; [facility] Lyrica Allergy 12/25/2017 Active Last Documented On 2 2:01PM ; [facility] Cymbalta Allergy 12/25/2017 Active Last Documented On 2 2:01PM ; [facility] Augmentin Allergy 12/25/2017 Active Last Documented On 2 2:01PM ; [facility] anti-inflammatories Allergy 12/25/2017 Active Last Documented On 2 2:01PM ; [facility] Ambien Allergy 12/25/2017 Active Last Documented On 2 2:01PM ; [facility], [facility] Encounters Encounter Provider Location Date Check-In Time Check- Out Time Diagnosis Follow Up Coy Nieves MD [facility] 2 10:02AM 11:17AM Insurance Includes: Active Insurance Policies Plan Name Member ID Group # Subscriber Relationship Effect daniela Dates 1 - [facility] [id number] CASPER CUNNINGHAM Self 9 - Unknown 2 - [facility] Health Plan [id number] CASPER CUNNINGHAM Self 0 - Unknown Clinical Notes Includes: Clinical Notes from this encounter No Clinical Notes Recorded
--- OUTSIDE RECORDS SUMMARY | 2024-02-01 11:55 | XMS_ITS | Clinical Summary ---
Author Organization [facility] Address [address] [place] [address] Phone Care Team Providers Care Rn Procedure Name Role Phone CHAIM OLIVEIRA Unavailable [phone] Ezequiel FULLER, Coy Unavailable [phone] Xiomy Aviles MD Primary Care Provider [phone] Reason for Visit and Chief Complaint [Patient Encounter] Problems Includes: Problems addressed during this encounter and other active Problems All Visits Onset Date Resolved Date Provider Condition S tatus Joint Pain in the Right Hip 12/28/2021 Coy Nieves MD Active Last Documented On 2 2:02PM ; [facility] History of Joint Pain, Local ized in the Left Shoulder 08/17/2020 Victor Manuel Kyle MD Active Last Documented On 1 1:28PM ; [facility], [facility] Joint Pain in the Left Hip 12/29/2017 Coy cisse MD Active Last Documented On 8 9:58AM ; [facility], [facility] Plan of Treatment Pending Tests Order Diagnosis Results Due Ordering P rovider Radiology - MRI MRI Hip 01/08/18 Coy cisse MD Last Documented On 9 9:32AM ; [facility], [facility] Assessments Includes: Assessments from this encounter No Assessments Recorded Medical Equipment - Implanted Devices Includes: Current Devices No Medical Equipment Recorded Medications Includes: Medications discussed during this encounter and other current Medications New / Renewed during this visit Coy Nieves MD on 04/19/2021 Duexis 800-26.6 MG Oral Tablet Provider: Coy Nieves MD 30 day supply: 90 tablet, 2 refills Diagnosis: three times a day take 1 tab let three times daily Pharmacy: [facility] [address] [place], [address] - Last Documented On 2 4:10PM By Linette Joy ; [facility] Current Medications (continue as prescribed) Wellbutrin XL 150 MG Oral Ta blet Extended Release 24 Hour 12/15/2021 Provider: CHAIM OLIVEIRA Diagnosis: Last Documented On 2 1:17PM By Carol Kiran ; [facility], [facility] Cyanocobalamin 1000 MCG/ML Injection Solution 12/16/19 Provider: Xiomy Aviles MD Diagnosis: Last Documented On 2 1:17PM By Carol Kiran ; [facility], [facility] Synthroid 50 MCG Oral Tablet 12/15/2021 Provider: CHAIM OLIVEIRA Diagnosis: Last Documented On 2 1:17PM By Carol Kiran ; [facility], [facility] tiZANidine HCl 4 MG Oral Tablet 11/17/2021 Provider: Xiomy Aviles MD Diagnosis: Last Documented On 2 1:17PM By Carol Kiran ; [facility], [facility] Topamax 100 MG Oral Tablet 11/15/2021 Provider: Kiet OLIVEIRA Diagnosis: Last Documented On 2 1:17PM By aCrol Kiran ; [facility], [facility] SUMAtriptan Succinate 100 MG Oral Tablet 11/15/2021 Provider: CHAIM OLIVEIRA Diagnosis: Last Documented On 2 1:17PM By Carol Kiran ; [facility], [facility] Eszopiclone 1 MG Oral Tablet 11/12/2021 Provider: Xiomy Aviles MD Diagnosis: Last Documented On 2 1:17PM By Carol Kiran ; [facility] ALPRAZolam 0.5 MG Oral Tablet 11/12/2021 Provider: Xiomy Aviles MD Diagnosis: Last Documented On 2 1:17PM By Carol Kiran ; [facility] Lidocaine 5% External Patch 11/12/2021 Provider: Xiomy Aviles MD Diagnosis: Last Documented On 2 1:17PM By Carol Kiran ; [facility] Nurtec 75 MG Oral Tablet Disintegrating 10/18/2021 Miley chapa: ROSA SOLIMAN MD Diagnosis: Last Documented On 2 1:18PM By Carol Kiran ; [facility] Medications Administered Includes: Administered Medications from this encounter No Administered Medications Recorded Results Includes: Results discussed during this encounter No Results Recorded For Specified Dates History of Present Illness Includes: History of Present Illness from this encounter No History of Present Illness Recorded Social History No Social History Recorded - Smoking Status Unknown Medical History Includes: Medical History addressed during this encounter No Medical History Recorded Family History Includes: Family History addressed during this encounter No Family History Recorded Review of Systems Includes: Review of Systems from this encounter No Review of Systems Recorded Mental Status Includes: Mental Status from this encounter No Mental Status Recorded Functional Status Includes: Functional Status from this encounter No Functional Status Recorded Physical Exam Includes: Physical Exam from this encounter No Physical Exam Recorded Allergies Includes: Active Allergies Substance Type Reaction Onset Date Resolved Date Statu s Vibramycin Allergy 12/25/2017 Active Last Documented On 2 2:01PM ; [facility] steroids Allergy 12/25/2017 Active Last Documented On 2 2:01PM ; [facility] Propofol Allergy 12/18/2018 Active Last Documented On 2 2:01PM ; [facility] Lyrica Allergy 12/25/2017 Active Last Documented On 2 2:01PM ; [facility] Cymbalta Allergy 12/25/2017 Active Last Documented On 2 2:01PM ; [facility] Augmentin Allergy 12/25/2017 Active Last Documented On 2 2:01PM ; [facility] anti-inflammatories Allergy 12/25/2017 Active Last Documented On 2 2:01PM ; [facility] Ambien Allergy 12/25/2017 Active Last Documented On 2 2:01PM ; [facility], [facility] Encounters Encounter Provider Location Date Check-In Time Check-Out Time Diagnosis [Patient Encounter] Coy Nieves MD 04/19/2021 4:08PM 11:59PM Insurance Includes: Active Insurance Policies Plan Name Member ID Group # Subscriber Relationship Effect daniela Dates 1 - [facility] [id number] CASPER CUNNINGHAM Self 9 - Unknown 2 - [facility] Plan [id number] CASPER CUNNINGHAM Self 0 - Unknown Clinical Notes Includes: Clinical Notes from this encounter No Clinical Notes Recorded
--- OUTSIDE RECORDS SUMMARY | 2024-02-01 11:55 | XMS_ITS | Clinical Summary ---
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 Phone CHAIM OLIVEIRA Unavailable [phone] Ezequiel FULLER, Coy Unavailable [phone] Xiomy Aviles MD Primary Care Provider [phone] Reason for Visit and Chief Complaint The Chief Complaint is: right hip pain Problems Includes: Problems addressed during this encounter and other active Problems All Visits Onset Date Resolved Date Provider Condition S tatus Joint Pain in the Right Hip 12/28/2021 Coy Nieves MD Active Last Documented On 2 2:02PM ; [facility], [facility] History of Joint Pain, Local ized in the Left Shoulder 08/17/2020 Victor Manuel Kyle MD Active Last Documented On 1 1:28PM ; [facility], [facility] Joint Pain in the Left Hip 12/29/2017 Coy cisse MD Active Last Documented On 8 9:58AM ; [facility], [facility] Plan of Treatment No Plan of Treatment Recorded Assessments Includes: Assessments from this encounter No Assessments Recorded Medical Equipment - Implanted Devices Includes: Current Devices No Medical Equipment Recorded Medications Includes: Medications discussed during this encounter and other current Medications New / Renewed during this visit Sahil Lemus PA-C on 12/01/2021 Duexis 800-26.6 MG Oral Tablet Provider: Sahil Whitney 30 day supply: 90 tablet, 2 refills Diagnosis: three times a day take 1 tab let three times daily Pharmacy: [facility] Patient Care-[facility] - [id number], [id number] - Last Documented On 2 3:39PM By Mariam Henriquez ; [facility], [facility] Current Medications (continue as prescribed) Wellbutrin XL 150 MG Oral Ta blet Extended Release 24 Hour 12/15/2021 Provider: CHAIM OLIVEIRA Diagnosis: Last Documented On 2 1:17PM By Carol Kiran ; [facility], [facility] Cyanocobalamin 1000 MCG/ML Injection Solution 12/16/19 Provider: Xiomy Aviles MD Diagnosis: Last Documented On 2 1:17PM By Carol Kiran ; [facility], [facility] Synthroid 50 MCG Oral Tablet 12/15/2021 Provider: CHAIM OLIVEIRA Diagnosis: Last Documented On 2 1:17PM By Carol Kiran ; [facility], [facility] tiZANidine HCl 4 MG Oral Tablet 11/17/2021 Provider: Xiomy Aviles MD Diagnosis: Last Documented On 2 1:17PM By Carol Kiran ; [facility], [facility] Topamax 100 MG Oral Tablet 11/15/2021 Provider: Kiet OLIVEIRA Diagnosis: Last Documented On 2 1:17PM By Carol Kiran ; [facility], [facility] SUMAtriptan Succinate 100 MG Oral Tablet 11/15/2021 Provider: CHAIM OLIVEIRA Diagnosis: Last Documented On 2 1:17PM By Carol Kiran ; [facility], [facility] Eszopiclone 1 MG Oral Tablet 11/12/2021 Provider: Xiomy Aviles MD Diagnosis: Last Documented On 2 1:17PM By Carol Kiran ; [facility], [facility] ALPRAZolam 0.5 MG Oral Tablet 11/12/2021 Provider: Xiomy Aviles MD Diagnosis: Last Documented On 2 1:17PM By Carol Kiran ; [facility], [facility] Lidocaine 5% External Patch 11/12/2021 Provider: Xiomy Aviles MD Diagnosis: Last Documented On 2 1:17PM By Carol Kiran ; [facility], [facility] Nurtec 75 MG Oral Tablet Disintegrating 10/18/2021 Miley chapa: ROSA SOLIMAN MD Diagnosis: Last Documented On 2 1:18PM By Carol Kiran ; [facility], [facility] Past Medications on file Ibuprofen 800 MG Oral Tablet 12/29/2021 - 01/28/2022 Miley rovider: Coy Nieves MD Diagnosis: three times a day Last Documented On 2 4:08PM By Coy Fontenot [facility], [facility] Ibuprofen-Famotidine 800-26. 6 MG Oral Tablet 12/28/2021 - 07/26/2022 Provider: Coy Nieves MD Diagnosis: twice a day Last Documented On 2 2:40PM By Coy Fontenot [facility], [facility] Duexis 800-26.6 MG Oral Tablet 08/17/2021 - 04/14/2022 Provider: Coy Nieves MD Diagnosis: 1 tablet three times daily Last Documented On 2 11:26AM By Coy Fontenot [facility], [facility] Duexis 800-26.6 MG Oral Tablet 04/19/2021 - 07/18/2021 Provider: Coy Nieves MD Diagnosis: three times a day take 1 tablet three times viky y Last Documented On 2 4:10PM By Linette Fontenot [facility], [facility] traMADol HCl 50 MG Oral Tablet 11/30/2020 - 01/09/2021 Provider: Coy Nieves MD Diagnosis: Take 1 tablet every 8 hrs prn pain Last Documented On 1 9:39AM By Coy Fontenot [facility], [facility] Duexis 800-26.6 MG Oral Tablet 07/30/2020 - 10/28/2020 Provider: Coy Nieves MD Diagnosis: three times a day take 1 tablet three times viky y Last Documented On 1 11:47AM By Coy Fontenot [facility], [facility] Lidoderm 5% External Patch 07/30/2020 - 12/27/2020 Pro vider: Coy Nieves MD Diagnosis: apply as directed one one time a day Last Documented On 11:49AM By Coy Fontenot [facility], [facility] traMADol HCl 50 MG Oral Tablet 07/30/2020 - 09/08/2020 Provider: Coy Nieves MD Diagnosis: Take 1 tablet every 8 hrs prn pain Last Documented On 1 11:52AM By Coy [facility] traMADol HCl 50 MG Oral Tablet 05/07/2020 - 05/27/2020 Provider: Coy Nieves MD Diagnosis: Take 1 tablet every 8 hrs prn pain Last Documented On 1 5:08PM By Coy Nieves ; [facility] traMADol HCl 50 MG Oral Tablet 02/25/2020 - 03/16/2020 Provider: Coy Nieves MD Diagnosis: Take 1 tablet every 8 hrs prn pain Last Documented On 0 4:10PM By Mami Norton ; [facility] traMADol HCl 50 MG Oral Tablet 01/09/2020 - 01/29/2020 Provider: Cyo Nieves MD Diagnosis: Take 1 tablet every 8 hrs prn pain Last Documented On 0 1:13PM By Mami Norton ; [facility] Cyclobenzaprine HCl 10 MG Or al Tablet 11/20/2019 - 11/25/2019 Provider: Coy Nieves MD Diagnosis: twice a day Last Documented On 0 12:06PM By Mami Norton ; [facility] traMADol HCl 50 MG Oral Tablet 11/18/2019 - 12/08/2019 Provider: Coy Nieves MD Diagnosis: three times a day Last Documented On 0 1:38PM By Mami Norton ; [facility] Duexis 800-26.6 MG Oral Tablet 09/17/2019 - 12/16/2019 Provider: Coy Nieves MD Diagnosis: three times a day take 1 tablet three times viky y Last Documented On 0 11:33AM By Nannette Thomas ; [facility] traMADol HCl 50 MG Oral Tablet 09/17/2019 - 10/07/2019 Provider: Coy Nieves MD Diagnosis: three times a day Last Documented On 0 11:24AM By Nannette Thomas ; [facility] Ultram 50 MG Oral Tablet 03/15/2019 - 03/25/2019 Provi que: Coy Nieves MD Diagnosis: 1-2 po q 4-6h 1-2 tablets by mouth every 4-6hrs for post op pain Last Documented On 9 12:50PM By Jocelynn Pardo ; [facility], [facility] Medications Administered Includes: Administered Medications from this encounter No Administered Medications Recorded Vital Signs Includes: Vital Signs from this encounter Vital Name 12/01/2021 02:20P Blood Pressure Sitting (mmHg) 115/80 Pulse Rate-Sitting (bpm) 89 Height (in) 70 Weight (lb) 164.6 Body Mass Index (kg/m2) 23.6 Body Surface Area (m2) 1.9 Note: [facility] Last Documented: On 12/01/2021 2:20PM ; [facility], [facility] Results Includes: Results discussed during this encounter No Results Recorded For Specified Dates History of Present Illness Includes: History of Present Illness from this encounter BLAIR CUNNINGHAM is a 51 year old female. - Allergy list reviewed - Problem list reviewed - Medication reconciliation performed - Medication list reviewed - Medication list reviewed with patient 51 year old female in today for bilateral hip pain. She states that she has had pain in both of her hips recently and has been having pain at night She physically has to move her own leg because she is not able to on her own. She has pain running down both legs that go to the back. She surgically fixed her labrum a while ago on the right side. She has had intense pain in the last 6 weeks. She has a hard time with putting pressure on the hip at any time. Review of systems: All systems within normal limits with exception of bilateral hip pain Physical Exam: CONSTITUTIONAL: Well developed, [...] normal in lower extremities. GAIT AND STATION: Normal gait without assistive devices. Station normal. Musculoskeletal: RIGHT HIP: Pain in the groin area Imagin View: L Spine X ray shows potential bulging disk but no major findings 2 view: Right Hip X ray shows some signs of impingements of the right hip Assessment: Right hip impingement Right hip s/p labrum repair RIGHT HIP INJECTION: Ultrasound Guidance Risks and benefits of the procedure were discussed the patient to her full understanding. The patient was placed in the supine position and the skin over the joint was prepped sterilely. A superior trochanteric approach entering the joint using a spinal needle was used. Aspiration to confirm no presence of vascular bed was performed. An injection of 1 cc of Celestone and 4 cc of lidocaine was placed into the joint space. The hip was placed through full active range of motion without difficulties. Patient tolerated the procedure very well. Plan: Due to the findings in todays exam we will move forward with a injection in the hip under ultrasound guidance. This will photographer helper in symptom relief. She should continue with ice and ibuprofen as needed. Social History Description Last Updated Tobacco non-user 12/01/2021 Last Documented On 2 10:10AM ; [facility], [facility] Exercising regularly 07/30/2020 Last Documented On 2 2:08PM ; [facility], [facility] Non-smoker 02/20/2020 Last Documented On 2 2:08PM ; [facility], [facility] No recent change in diet 02/20/2020 Last Documented On 2 2:08PM ; [facility], [facility] Not a current smoker. 02/20/2020 Last Documented On 2 2:08PM ; [facility], [facility] Not using drugs 02/20/2020 Last Documented On 2 2:08PM ; [facility] Alcohol use seldom 12/18/2018 Last Documented On 2 2:08PM ; [facility], [facility] Caffeine use seldom 12/18/2018 Last Documented On 2 2:08PM ; [facility], [facility] Not a current smoker 12/25/2017 Last Documented On 2 2:08PM ; [facility], [facility] No tobacco use 12/25/2017 Last Documented On 2 2:08PM ; [facility], [facility] Smoking status : Former smoker 8 Last Documented On 2 2:08PM ; [facility], [facility] Procedures and Surgical History Includes: Procedures from this encounter Procedures Code Diagnosis Performing Provider Service L ocation Service Date use of tobacco assessment performed 1000F Last Documented On 2 2:08PM ; [facility] Surgical History Last Updated History of heart surgery 12/25/2017 Last Documented On 2 2:08PM ; [facility] Medical History Includes: Medical History addressed during this encounter Description Last Updated Asthma 07/30/2020 Last Documented On 2 2:08PM ; [facility] Irregular Heartbeat 07/30/2020 Last Documented On 2 2:08PM ; [facility] Thyroid Disease 07/30/2020 Last Documented On 2 2:08PM ; [facility] Heart surgery 07/30/2020 Last Documented On 2 2:08PM ; [facility] History of Gallbladder 07/30/2020 Last Documented On 2 2:08PM ; [facility] Past Surgical History: Thori ac outlet (rib resection), Bilateral thumbs, Bilateral carpal tunnel, Right hip, breast biopsy x3, tubal, , D & C X2 07/30/2020 Last Documented On 2 2:08PM ; [facility] Previous Fractures 07/30/2020 Last Documented On 2 2:08PM ; [facility] Recent immunization for flu 02/02/2020 1 04/04/2019 07/30/2020 Last Documented On 2 2:08PM ; [facility] No recent immunization for pneumococcal pneumonia 02/20/2020 Last Documented On 2 2:08PM ; [facility] heart surgery,previous fx,ir regular heartbeat,PFO Closure, suction dialation and curettage ~esophogeal spasms ~Bilateral Carpal Tunnel Release ~ ~Breast ~Endometrial Ablation ~DNC ~Left Rib Resection ~Colonoscopy ~RED 12/18/2018 Last Documented On 2 2:08PM ; [facility] A previous fracture left and right wrist 12/18/2018 Last Documented On 2 2:08PM ; [facility] History of asthma 12/18/2018 Last Documented On 2 2:08PM ; [facility] Thyroid disease hypothyroid 12/18/2018 Last Documented On 2 2:08PM ; [facility] A recent injection 12/18/2018 Last Documented On 2 2:08PM ; [facility] Gallbladder disease 12/25/2017 Last Documented On 2 2:08PM ; [facility] History of depression 12/25/2017 Last Documented On 2 2:08PM ; [facility] Family History Includes: Family History addressed during this encounter Description Last Updated Family history of cancer 07/30/2020 Last Documented On 2 2:08PM ; [facility] father: heart attack ~stroke /seizures: mother and grand mother on both sides of family 12/18/2018 Last Documented On 2 2:08PM ; [facility] Family history of heart disease 12/19/19 19 Last Documented On 2 2:08PM ; [facility] Family history of hypertension grandmoth er 12/18/2018 Last Documented On 2 2:08PM ; [facility] Family history of osteoporosis grandmoth er 12/18/2018 Last Documented On 2 2:08PM ; [facility] Stroke/seizures 12/25/2017 Last Documented On 2 2:08PM ; [facility] Review of Systems Includes: Review of Systems [...] Active Last Documented On 2 2:01PM ; [facility], [facility] steroids Allergy 12/25/2017 Active Last Documented On 2 2:01PM ; [facility] Propofol Allergy 12/18/2018 Active Last Documented On 2 2:01PM ; [facility] Lyrica Allergy 12/25/2017 Active Last Documented On 2 2:01PM ; [facility] Cymbalta Allergy 12/25/2017 Active Last Documented On 2 2:01PM ; [facility] Augmentin Allergy 12/25/2017 Active Last Documented On 2 2:01PM ; [facility], [facility] anti-inflammatories Allergy 12/25/2017 Active Last Documented On 2 2:01PM ; [facility] Ambien Allergy 12/25/2017 Active Last Documented On 2 2:01PM ; [facility] Encounters Encounter Provider Location Date Check-In Time Check-Out Time Diagnosis NEW PROBLEM/EST PT Sahil Lemus PA-C [facility] 12/02/19 22 1:42PM 3:27PM Insurance Includes: Active Insurance Policies Plan Name Member ID Group # Subscriber Relationship Effect daniela Dates 1 - [facility] [id number] CASPER CUNNINGHAM Self 9 - Unknown 2 - [facility] Plan [id number] CASPER CUNNING[place]AM Self 0 - Unknown Clinical Notes Includes: Clinical Notes from this encounter No Clinical Notes Recorded
[2024-02-01 12:10] LABS: Apearance,Urine Clear (Clear); Color,Urine Yellow (Yellow); PH,Urine 5.5 (5.0-8.5); Protein,Urine 1+ (Negative)
[2024-02-01 12:11] VITALS: BP 124/80; PULSE 72; RESP 20; TEMP 36.9; O2SAT 99; BMI 19.2
[2024-02-01 12:11] LABS: Bilirubin,Urine Negative (Negative); Blood, Urine Trace (Negative); Glucose,Urine (UA) Negative (Negative); Ketones,Urine TRACE (Negative); UTC Leukocyte Esterase,Urine Trace (Negative); UTC Nitrate,Urine Negative (Negative); Urobilinogen,Urine 0.2 EU/dl (0.2)
--- NOTE | 2024-02-01 12:25 | ED_ITS ---
Discharge Plan Disposition Patient Disposition: Home, Self-Care Condition: Good Prescriptions Prescriptions: New nitrofurantoin monohyd/m-cryst [Macrobid] 100 mg capsule 100 mg PO Q12H 7 Days Qty: 14 0RF Rx Instructions: must administer with a meal/food phenazopyridine [Pyridium] 200 mg tablet 200 mg PO Q8H 2 Days Qty: 6 0RF No Action topiramate [Topamax] 200 mg tablet 200 mg PO ONCE bupropion HCl [Wellbutrin XL] 150 mg tablet extended release 24 hr 150 mg PO QAM fluoxetine [Prozac] 10 mg capsule 10 mg PO ONCE tizanidine [Zanaflex] 2 mg capsule 2 mg PO TID PRN (Reason: Muscle Pain) Referrals Follow up/Referrals: Chanelel Kay [Primary Care Provider] - See instructions Activity Restrictions/Add. Instructions Additional Instructions/Restrictions: *Increase fluids. Water not Soda or Tea *Start antibiotic immediately and be sure to take as ordered for the FULL length of time although you should start to see improvement over the next 48 hours *Pyridium as needed Remember this medication will turn your urine . This is normal but it will stain what ever it gets on *You should not use Pyridium for more than 48 hours. If so , follow up with your primary physician to review urine culture and ensure that antibiotic is adequate for infection *Be SURE to follow up anytime for new or worsening symptoms with your family doctor. AND in 48 hours for urine culture results with your family doctor, if you do not have a doctor then you may call back to the [facility] for urine culture results and further treatment. We do recommend that you choose and establish care with a Primary Care Physician. ?AND follow up with them ?in 10-14 days to repeat UA to ensure infection is resolved and blood no longer present *Be sure to let your PCP know that we sent urine cultures from the [facility] so they can follow up to ensure that you area the on the correct antibiotic Call your doctor office and make appointment for 48 hours (2 days from today) ?to follow up and get the results of your urine culture and further treatment Clinical Impressions Clinical Impression: UTI (urinary tract infection) Migraine Qualifiers: Migraine type: unspecified Status migrainosus presence: without status migra inosus Intractability: not intractable Qualified Code(s): G43.909 - Migraine, unspecified, not intractable, without status migrainosus Instructions Patient Instructions: Migraine -- Adult, DI for Urinary Tract Infection (UTI), Nitrofurantoin Print Language Print Language: Lao Discharge ED Provider: Pinky Thacker [facility] HPI General Stated complaint: pain and frequent urination Mode of Arrival: Ambulatory Source of Information: Patient Time Seen by Provider: 02/01/24 12:25 Description of Symptoms (Recalled from Triage Doc. by RN): RECURRENT UTI, JUST FINISHED A COURSE OF MICROBID, STATES BURNING, BLOOD IN URINE AND POSSIBLE PUS C/O MIGRAINE WELL HEENT Symptoms (Recalled from RN notes): Yes Resp Symptoms (Recalled from RN notes): No Skin Symptoms (Recalled from RN notes): No MS Symptoms (Recalled from RN notes): No Functional Status (Recalled from RN notes): WNL History of Present Illness Provider Complaint: Patient states that she has recurrent UTI States that she had a UTI first of the month and finished all her medications but she has noticed when her and her partner has intercourse she gets a UTI shortly after and yesterday she started again with burning with urination, thinks she may have seen some blood streaks in it and feeling like her urine is thick at times, with urgency and frequency States also she has a migraine and wanting to get a [place] l shot to help states it is like the migraine she has had in the past and got Toradol for it Related Data Home Medications ?Medication ?Instructions ?Recorded ?Confirmed bupropion HCl 150 mg 24 hr tablet, 150 mg PO QAM MOOD 06/18/17 02/01/24 extended release (Wellbutrin XL) fluoxetine 10 mg capsule (Prozac) 10 mg PO ONCE Anxiety 06/18/17 02/01/24 tizanidine 2 mg capsule (Zanaflex) 2 mg PO TID PRN Muscle Pain 06/18/17 02/01/24 topiramate 200 mg tablet (Topamax) 200 mg PO ONCE Headache 06/18/17 02/01/24 Previous Rx's ?Medication ?Instructions ?Recorded nitrofurantoin 100 mg PO Q12H 7 days #14 caps 02/01/24 monohydrate/macrocrystals 100 mg capsule (Macrobid) phenazopyridine 200 mg tablet 200 mg PO Q8H pain 2 days #6 tabs 02/01/24 (Pyridium) Allergies Allergy/AdvReac Type Severity Reaction Status Date / Time amoxicillin [From Augmentin] Allergy Unknown Verified 02/01/24 12:36 allergy reaction clavulanic acid Allergy Unknown Verified 04/20/23 14:18 [From Augmentin] allergy reaction Corticosteroids Allergy Unknown Verified 04/20/23 14:18 (Glucocorticoids) allergy reaction doxycycline Allergy Unknown Verified 04/20/23 14:18 allergy reaction duloxetine [From Cymbalta] Allergy Unknown Verified 04/20/23 14:18 allergy reaction milnacipran [From Savella] Allergy Unknown Verified 04/20/23 14:18 allergy reaction pregabalin [From Lyrica] Allergy Unknown Verified 04/20/23 14:18 allergy reaction propofol Allergy Unknown Verified 04/20/23 14:18 allergy reaction zolpidem [From Ambien] Allergy Unknown Verified 04/20/23 14:18 allergy reaction meloxicam AdvReac Mild Vomiting Verified 02/01/24 12:37 sulfamethoxazole AdvReac Vomiting Verified 02/01/24 12:17 [From Bactrim] trimethoprim [From Bactrim] AdvReac Vomiting Verified 02/01/24 12:17 Worker's Comp Is this a Worker's Comp case?: No [facility] Disclaimer: The information contained in this section may have been updated after the patient was seen, as this information can be updated by other users. Medical History (Updated 02/01/24 @ 12:41 by Pinky Thacker APRN) No significant past medical history Social History (Updated 01/26/22 @ 10:52 by Angie Yancey RN) Smoking Status: Never smoker second hand exposure: No alcohol intake: never substance use type: unknown current occupational status: other Travel in the last 8 weeks: None household members: family housing: house caffeine: Yes ROS Obtained: Yes All systems reviewed & no additional complaints except as documented and Yes Systems reviewed as appropriate & no additional complaints except as documented Constitutional Constitutional: Reports system reviewed and no additional complaints, except as documented, Reports as per HPI, Denies body ache, Denies chills, Denies fever(s) and Reports headache(s) Eyes Eyes: Reports system reviewed and no additional complaints, except as documented, Reports as per HPI, Denies blurry vision, Denies diplopia and Denies sensitivity to light ENT Ears, Nose, Mouth, and Throat: Reports system reviewed and no additional complaints, except as documented, Reports as per HPI and Reports headache(s) Cardiovascular Cardiovascular: Reports system reviewed and no additional complaints, except as documented and Reports as per HPI Respiratory Respiratory: Reports system reviewed and no additional complaints, except as documented and Reports as per HPI Gastrointestinal Gastrointestingal: Reports system reviewed and no additional complaints, except as documented and as per HPI; Denies nausea or vomiting Genitourinary Female Genitourinary: Reports system reviewed and no additional complaints, except as documented, Reports as per HPI, Reports dysuria, Reports urinary frequency and Reports urinary urgency Musculoskeletal Musculoskeletal: Reports system reviewed and no additional complaints, except as documented and Reports as per HPI Integumentary/Breasts Skin/Breast: Reports system reviewed and no additional complaints, except as documented and Reports as per HPI Neurologic Neurologic: Reports headache(s) Physical Exam General General appearance: alert and in no apparent distress Eye Eye exam: Present normal appearance, PERRL and EOMI ENT ENT exam: Present mucous membranes moist Respiratory Respiratory exam: Present normal lung sounds bilaterally; Absent respiratory distress or wheezes Cardiovascular Cardiovascular exam: Present regular rate, normal rhythm and normal heart sounds Abdominal Exam Abdominal exam: Present soft and normal bowel sounds; Absent distention or tenderness Neurological Exam Neurological exam: Present alert, oriented X3 and normal gait Medical Decision Making Medical Records Screening: Per USPSTF and CDC recommendations, given the prevalence of disease in our region, it is our hospital?s policy to screen for HIV and viral Hepatitis for all patients aged 18 and over and those with ongoing risk factors. [place] Inquiry Pt receiving controlled substance: No [place] was queried for this patient: No Vital Signs: 02/01/24 12:11 Temperature 98.4 F Temperature Source Oral Pulse Rate [Left Radial] 72 Respiratory Rate 20 Blood Pressure [Left Arm] 124/80 Blood Pressure Mean [Left Arm] 94 02 Sat by Pulse Oximetry 99 Lab Data Lab results reviewed: Yes I reviewed the patient's lab results. Lab Results 02/01/24 11:47: Urine Color Yellow, Urine Appearance Clear, Urine pH 5.5, Ur Specific [place] 1.030, Urine Protein 1+, Urine Glucose (UA) Negative, Urine Ketones Trace, Urine Blood Trace, Urine Nitrate Negative, Urine Bilirubin Negative, Urine Urobilinogen 0.2, Ur Leukocyte Esterase Trace Orders (Tests/Meds): ORDERS Category Date Time Status Urine Culture Stat Micro 02/01/24 12:11 Ordered Medical Decision Narrative: Patient states that meloxicam causes GI upset but she has taken Toradol in the past without complications or reactions, Patient states that she took migraine medication at home just not clearing the migraine and she sometimes comes in and gets Toradol shot
[2024-02-01] MEDS: KETOROLAC 30MG/ML VIAL 30 MG IM (12:40)
[2024-02-01 12:48] VITALS: BP 124/80; PULSE 72; RESP 20; TEMP 36.9
== END 2024-02-01 12:59 | disposition home or self-care (01) ==
PROVIDERS: Emergency Provider Nurse Practitioner; PCP Nurse Practitioner Family
DX: G43.909 Migraine, unspecified, not intractable, without status migrainosus (principal); N39.0 Urinary tract infection, site not specified
CPT/HCPCS: 81003; 87086; 96372; 99213; G0381; J1885

== ENCOUNTER 2025-01-20 13:55 | Outpatient (CLI) | payer BC, SELFPAY ==
--- NOTE | 2025-01-20 13:58 | US_ITS ---
FINAL REPORT CLINICAL HISTORY: UTI COMPARISON: none FINDINGS: RENAL ULTRASOUND Ultrasound images of the kidneys were obtained. Limited images of the liver parenchyma demonstrates normal echogenicity. The right kidney measures 9.6 cm in length. It is normal echogenicity. There is no hydronephrosis. The left kidney measures 9.9 cm in length. It is normal echogenicity. There is no hydronephrosis. IMPRESSION: Normal renal ultrasound. Reviewed, Interpreted and Dictated by Erica Bradley MD Transcribed by Crystal Marcano Authenticated and [facility]
== END 2025-01-20 23:59 | disposition home or self-care (01) ==
PROVIDERS: PCP Nurse Practitioner Family; Visit Provider Urology
DX: N39.0 Urinary tract infection, site not specified (principal)
CPT/HCPCS: 76770